=== PATIENT | male | born 1960 | race American Indian/Alaskan Native ===

== ENCOUNTER 2019-01-09 20:46 | Emergency (ER) | payer SELFPAY ==
--- NOTE | 2019-01-09 21:11 | Event Note ---
ED Screening Note Date of service: 01/09/19 Time: 21:08 ED Screening Note: This is a 59 y.o. M. that presents to the ER with LUE pain. Patient states he was walking home when he fell. Reports drinking a few beers and dont know who called EMS for him. He denies hitting his head. This initial assessment/diagnostic orders/clinical plan/treatment(s) is/are subject to change based on patients health status, clinical progression and re- assessment by fellow clinical providers in the ED. Further treatment and workup at subsequent clinical providers discretion. Patient/guardian urged not to elope from the ED as their condition may be serious if not clinically assessed and managed. Initial orders include:
[2019-01-09] MEDS ORDERED: HALOPERIDOL LACTATE 5 MG/1 ML INJ IM PRN (22:55)
[2019-01-09] MEDS ORDERED: LORazepam 2 MG/ML VIAL IM PRN (22:55)
--- NOTE | 2019-01-09 23:56 | Emergency Department Report ---
ED Alcohol HPI - General Chief Complaint: Extremity Injury, Upper Stated Complaint: ETOH Time Seen by Provider: 01/09/19 21:07 Source: patient, EMS ( EMS documentation not available at time of chart dictation ), RN notes reviewed Mode of arrival: Ambulatory Limitations: No Limitations, Other (alcohol intoxication) - History of Present Illness Initial Comments: This is a 59-year-old gentleman. This patient is not known to this provider previously. He does not know who his primary care doctor is. Reportedly has a history of arthritis, stroke, hypertension, left-sided hand pain. Patient brought to the hospital by EMS after reported fall. Apparently, the patient fell onto his left hand. He doesn't think he hit his head. He does not think he hit his neck. He only complains of left hand pain. He denies other injuries. He denies other complaints. He makes no dorsal homicidality or suicidality. Patient not accompanied by any friends, family, or witnesses at this time. MD Complaint: alcohol intoxication Last Drink: unknown Chronic Alcohol Use: No Previous Visits for Alcohol Intoxication?: No Recent Trauma: Yes Associated Symptoms: denies other symptoms - Related Data Previous Rx's Medication Instructions Recorded Last Taken Type Multivitamin with Folic Acid [Cvs 400 mcg PO QDAY #30 tablet 01/10/19 Unknown Rx One Daily Essential Tablet] chlordiazePOXIDE [Librium] 25 mg PO Q6H PRN #15 capsule 01/10/19 Unknown Rx Allergies Allergy/AdvReac Type Severity Reaction Status Date / Time No Known Allergies Allergy Unverified 01/02/19 22:32 ED Review of Systems ROS: Stated complaint: ETOH Other details as noted in HPI Comment: Unobtainable due to pts medical conditions Constitutional: denies: fever Eyes: denies: eye discharge ENT: denies: epistaxis Respiratory: denies: cough Cardiovascular: denies: chest pain Gastrointestinal: denies: abdominal pain Musculoskeletal: arthralgia, myalgia Neurological: denies: headache Psychiatric: denies: homicidal thoughts, suicidal thoughts ED Past Medical Hx - Past Medical History Previous Medical History?: Yes Hx Hypertension: Yes Hx CVA: Yes Hx Arthritis: Yes Additional medical history: Dysphagia - Surgical History Past Surgical History?: Yes Additional Surgical History: Has G-Tube - Social History Smoking Status: Current Every Day Smoker Substance Use Type: Alcohol - Medications Home Medications: Home Medications Medication Instructions Recorded Confirmed Last Taken Type Multivitamin with Folic Acid [Cvs 400 mcg PO QDAY #30 tablet 01/10/19 Unknown Rx One Daily Essential Tablet] chlordiazePOXIDE [Librium] 25 mg PO Q6H PRN #15 capsule 01/10/19 Unknown Rx ED Physical Exam - General General appearance: alert, appears intoxicated - Head Head exam: Present: atraumatic, normocephalic - Eye Eye exam: Present: normal appearance, EOMI. Absent: nystagmus - ENT ENT exam: Present: normal exam, normal orophraynx, mucous membranes moist, normal external ear exam - Neck Neck exam: Present: normal inspection, full ROM. Absent: tenderness, meningismus - Respiratory Respiratory exam: Present: normal lung sounds bilaterally. Absent: respiratory distress - Cardiovascular Cardiovascular Exam: Present: normal rhythm, tachycardia, normal heart sounds. Absent: systolic murmur, diastolic murmur, rubs, gallop - GI/Abdominal GI/Abdominal exam: Present: soft. Absent: distended, tenderness, guarding, rebound, rigid, pulsatile mass - Rectal Rectal exam: Present: deferred - Extremities Exam Extremities exam: Present: other (2+ pulses noted in the bilateral upper, lower extremities. There is no long bone tenderness. Musculoskeletal compartments are soft. The pelvis is stable.). Absent: normal inspection (left second digit PIP is swollen and chronically appearing discolored) - Back Exam Back exam: Present: normal inspection, full ROM. Absent: tenderness, CVA tenderness (R), CVA tenderness (L), paraspinal tenderness, vertebral tenderness - Neurological Exam Neurological exam: Present: alert, normal gait, other (there is no facial droop. The tongue is midline. Extraocular movements are intact bilaterally. Patient speaking in full complete sentences. Shoulder shrug is intact bilaterally. Hearing is grossly intact bilaterally. Visual acuity intact to finger counting and color perception at a close distance. 5/5 strength 4 extremities. Sensation intact to light touch in 4 extremities.). Absent: motor sensory deficit - Psychiatric Psychiatric exam: Absent: homicidal ideation, suicidal ideation - Skin Skin exam: Present: warm, dry, intact, normal color. Absent: rash ED Course Vital Signs 01/09/19 01/09/19 01/10/19 20:59 23:11 02:12 Temperature 98.0 F 98.2 F 98.2 F Pulse Rate 101 H 85 91 H Respiratory 18 16 18 Rate Blood Pressure 129/76 Blood Pressure 145/72 138/81 [Left] O2 Sat by Pulse 96 100 100 Oximetry - Reevaluation(s) Reevaluation #1: 01/10/19 00:33 Differential diagnosis, including not limited to: Alcohol intoxication, intracranial injury, cervical spine injury, left hand fracture, contusion, sprain, strain Assessment and plan: 59-year-old gentleman who is clinically intoxicated, walking with a walker, does not appear to be in any acute distress. Screening laboratory studies pending, thus far unremarkable. Noncontrast CT scan of the brain, cervical spine negative for acute disease. X-ray left hand appears to be negative for acute disease. We will observe patient in the emergency room pending clinical sobriety. Resting comfortable, on a stretcher at this time, and in no acute distress. Reevaluation #2: 01/10/19 01:17 Clinically sober, no acute distress, not endorsing any complaints. ED Medical Decision Making - Lab Data Result diagrams: 01/09/19 23:01 01/09/19 23:01 Vital Signs 01/09/19 01/09/19 20:59 23:11 Temperature 98.0 F 98.2 F Pulse Rate 101 H 85 Respiratory 18 16 Rate Blood Pressure 129/76 Blood Pressure 145/72 [Left] O2 Sat by Pulse 96 100 Oximetry Lab Results 01/09/19 01/09/19 01/09/19 Range/Units 23:01 23:01 23:01 WBC 6.9 (4.5-11.0) K/mm3 RBC 4.30 (3.65-5.03) M/mm3 Hgb 13.8 (11.8-15.2) gm/dl Hct 42.2 (35.5-45.6) % MCV 98 H (84-94) fl MCH 32 (28-32) pg MCHC 33 (32-34) % RDW 15.0 (13.2-15.2) % Plt Count 243 (140-440) K/mm3 Sodium 145 (137-145) mmol/L Potassium 3.5 L (3.6-5.0) mmol/L Chloride 103.7 (98-107) mmol/L Carbon Dioxide 29 (22-30) mmol/L Anion Gap 16 mmol/L BUN 13 (9-20) mg/dL Creatinine 0.7 L (0.8-1.5) mg/dL Estimated GFR > 60 ml/min BUN/Creatinine Ratio 19 % Glucose 89 (75-100) mg/dL Calcium 9.6 (8.4-10.2) mg/dL Magnesium 2.30 (1.7-2.3) mg/dL Total Creatine Kinase 164 (55-170) units/L Acetaminophen < 5.0 L (10.0-30.0) ug/mL - Radiology Data Radiology results: report reviewed, image reviewed interpreted by me: X-ray of the left hand is negative for acute disease. non Contrast CT scan of the brain, cervical spine negative for acute disease. Critical care attestation.: If time is entered above; I have spent that time in minutes in the direct care of this critically ill patient, excluding procedure time. ED Disposition Clinical Impression: Alcohol intoxication, Fall Disposition: DC-01 TO HOME OR SELFCARE Is pt being admited?: No Does the pt Need Aspirin: No Condition: Stable Additional Instructions: Minimize or discontinue alcohol consumption. Follow-up with the primary care doctor within the next month. Take the medications as needed/directed. Return to the emergency room right away with new, worsened, or different symptoms not present on the emergency room evaluation. Prescriptions: Multivitamin with Folic Acid [Cvs One Daily Essential Tablet] 400 mcg PO QDAY #30 tablet chlordiazePOXIDE [Librium] 25 mg PO Q6H PRN #15 capsule PRN Reason: Alcohol Withdrawal Referrals: PRIMARY CARE [Primary Care Provider] - 3-5 Days [facility] [Provider Group] - 3-5 Days [facility] [Provider Group] - 3-5 Days
[2019-01-10 00:07] LABS: Hematocrit 42.2 % (35.5-45.6); Hemoglobin 13.8 gm/dl (11.8-15.2); Mean Corpuscular HGB Conc 33 % (32-34); Mean Corpuscular Volume 98 fl (84-94); Platelet Count 243 K/mm3 (140-440)
--- NOTE | 2019-01-10 00:12 | Cat Scan Report ---
CT head/brain wo con INDICATION: Fall, head trauma. TECHNIQUE: Routine CT head without contrast. All CT scans at this location are performed using CT dose reduction for ALARA by means of automated exposure control. COMPARISON: None. FINDINGS: BRAIN / INTRACRANIAL CONTENTS: No acute hemorrhage, brain edema, mass effect, or hydrocephalus. Jagruti l romero-white differentiation. There are moderate areas of hypoattenuation in the white matter of the cerebral hemispheres. Given the location and appearance, these most likely reflect chronic microvascu lar angiopathic change. These are considered to be advanced (even for the patient's age) and probably indicate chronic hypertension, diabetes, and/or chronic kidney disease. CALVARIUM/SKULL BASE/CRANIOCERVICAL JUNCTION: No evidence of fracture. ORBITS: No significant abnormality of visualized orbits. SINUSES / MASTOIDS: No significant abnormality of visualized sinuses and mastoid air cells. ADDITIONAL FINDINGS: None. IMPRESSION: 1. No acute post-traumatic intracranial abnormality. 2. Moderate chronic microvascular angiopathic change in the cerebral white matter which is advanced f or the patient's age. Signer Name: Toy Allred MD Signed: 01/10/2019 12:08 AM Workstation Name: [id number]
--- NOTE | 2019-01-10 00:13 | Cat Scan Report ---
CT CERVICAL SPINE WITHOUT CONTRAST INDICATION: Neck pain, fall. TECHNIQUE: Axial CT images of the spine were obtained. Sagittal and coronal reformatted images were produced. Al l CT scans at this location are performed using CT dose reduction for ALARA by means of automated exp osure control. COMPARISON: None available. FINDINGS: ACUTE FRACTURE(S) OR SUBLUXATION: None. SPINAL DEGENERATIVE CHANGES: There findings of DISH with large anterior bridging osteophytes from C3 through C7. There is no significant spinal canal stenosis. PARASPINAL SOFT TISSUES: No soft tissue swelling or other acute abnormalities. ADDITIONAL FINDINGS: There is atherosclerotic calcification in the carotid bulbs. IMPRESSION: 1. No acute fracture or subluxation in the spine in neutral position. Signer Name: Toy Allred MD Signed: 01/10/2019 12:09 AM Workstation Name: [id number]
[2019-01-10 00:24] LABS: BUN/Creatinine Ratio 19; Blood Urea Nitrogen 13 mg/dL (9-20); Calcium 9.6 mg/dL (8.4-10.2); Hemolysis Index 20
--- NOTE | 2019-01-10 01:22 | XRay Report ---
XR hand 3+V LT INDICATION / CLINICAL INFORMATION: left hand pain. COMPARISON: None available. FINDINGS: BONES/JOINT(S): There is an avulsion fracture of the dorsal base of the index finger middle phalanx w ith mild volar subluxation of the middle phalanx. There is no other acute fracture. There is mild DJD throughout the interphalangeal joints. SOFT TISSUES: No significant abnormality. ADDITIONAL FINDINGS: None. Signer Name: Toy Allred MD Signed: 01/10/2019 1:17 AM Workstation Name: [id number]
[2019-01-10 02:48] VITALS: BP 138/81
== END 2019-01-10 02:12 | disposition home or self-care (01) ==
LOC: ED 20:46
DX: M79.602 Pain in left arm (principal); F10.929 Alcohol use, unspecified with intoxication, unspecified; R51 Headache; I10 Essential (primary) hypertension; M19.90 Unspecified osteoarthritis, unspecified site; F17.200 Nicotine dependence, unspecified, uncomplicated; Z86.73 Personal history of transient ischemic attack (TIA), and cerebral infarction without residual deficits; W19.XXXA Unspecified fall, initial encounter; Y93.89 Activity, other specified; Y92.89 Other specified places as the place of occurrence of the external cause; Y99.8 Other external cause status
CPT/HCPCS: 36415; 70450; 72125; 80048; 80320; 82550; 83735; 85027; G0480

== ENCOUNTER 2019-01-24 20:49 | Emergency (ER) | payer SELFPAY ==
--- NOTE | 2019-01-24 21:29 | Event Note ---
ED Screening Note Date of service: 01/24/19 Time: 21:26 ED Screening Note: 59 y/o male comes in for a cut on his left hand after having a fall. Patient denies head injury. No headache no chest pain no nausea or vomiting. This initial assessment/diagnostic orders/clinical plan/treatment(s) is/are subject to change based on patients health status, clinical progression and re- assessment by fellow clinical providers in the ED. Further treatment and workup at subsequent clinical providers discretion. Patient/guardian urged not to elope from the ED as their condition may be serious if not clinically assessed and managed. Initial orders include:
[2019-01-24] MEDS ORDERED: TETANUS,DIPH,PERTUSS(ACELL) VACCINE 0.5 ML SYRINGE IM ONE (21:37)
--- NOTE | 2019-01-24 21:40 | Emergency Department Report ---
HPI - General Chief Complaint: Alcohol Time Seen by Provider: 01/24/19 21:25 - HPI HPI: Room 29 The patient is a 5-year-old male presenting with a chief complaint left hand pain after fall. The patient states just prior to arrival he lost his balance a nd fell forward injuring his left hand. The patient states he has a history of end-stage renal disease and undergoes peritoneal dialysis but states he cannot remember the last time he dialyzed. Patient admits to alcohol consumption. ED Past Medical Hx - Past Medical History Hx Hypertension: Yes Hx CVA: Yes Hx Arthritis: Yes Additional medical history: Dysphagia - Surgical History Additional Surgical History: Feeding tube - Family History Family history: no significant - Social History Smoking Status: Current Every Day Smoker Substance Use Type: Alcohol - Medications Home Medications: Home Medications Medication Instructions Recorded Confirmed Last Taken Type Multivitamin with Folic Acid [Cvs 400 mcg PO QDAY #30 tablet 01/10/19 Unknown Rx One Daily Essential Tablet] chlordiazePOXIDE [Librium] 25 mg PO Q6H PRN #15 capsule 01/10/19 Unknown Rx ED Review of Systems ROS: Stated complaint: LACERATION TO LEFT HAND FROM FALL/ETOH Other details as noted in HPI Constitutional: no symptoms reported Eyes: denies: eye pain ENT: denies: throat pain Respiratory: no symptoms reported Cardiovascular: denies: chest pain Endocrine: no symptoms reported Gastrointestinal: denies: abdominal pain Genitourinary: denies: dysuria Musculoskeletal: arthralgia Skin: other (abrasion to left hand) Neurological: denies: headache Physical Exam - Physical Exam Vital Signs: Vital Signs 01/24/19 21:06 Temperature 98.3 F Pulse Rate 90 Respiratory 18 Rate Blood Pressure 150/78 O2 Sat by Pulse 99 Oximetry Physical Exam: GENERAL: The patient is well-developed well-nourished male standing with her walker not appearing to be in acute distress. [] HEENT: Normocephalic. Atraumatic. Extraocular motions are intact. Patient has moist mucous membranes. NECK: Supple. Trachea midline CHEST/LUNGS: Clear to auscultation. There is no respiratory distress noted. HEART/CARDIOVASCULAR: Regular. There is no tachycardia. There is no gallop rub or murmur. ABDOMEN: Abdomen is soft, nontender. Patient has normal bowel sounds. There is no abdominal distention. SKIN: There is an abrasion to the ulnar aspect of the left palm and left small finger. There is no diaphoresis. NEURO: The patient is awake, alert, and oriented. The patient is cooperative. The patient has normal speech MUSCULOSKELETAL: There is tenderness to palpation of the ulnar aspect of the left hand ED Course Vital Signs 01/24/19 21:06 Temperature 98.3 F Pulse Rate 90 Respiratory 18 Rate Blood Pressure 150/78 O2 Sat by Pulse 99 Oximetry ED Medical Decision Making - Lab Data Result diagrams: 01/24/19 22:52 01/24/19 21:42 Laboratory Tests 01/24/19 01/24/19 01/24/19 21:42 21:42 22:52 WBC TNR 8.4 RBC TNR 4.31 Hgb TNR 14.2 Hct TNR 42.0 MCV TNR 97 H MCH TNR 33 H MCHC TNR 34 RDW TNR 14.6 Plt Count TNR 248 Lymph % (Auto) TNR 16.0 [place]ferro % (Auto) TNR 8.0 H Eos % (Auto) TNR 3.5 Baso % (Auto) TNR 0.9 Lymph # TNR 1.3 [place]ferro # TNR 0.7 Eos # TNR 0.3 Baso # TNR 0.1 Seg Neutrophils % TNR 71.6 H Seg Neutrophils # TNR 6.0 Sodium 140 Potassium 4.3 Chloride 102.2 Carbon Dioxide 21 L Anion Gap 21 BUN 11 Creatinine 0.6 L Estimated GFR > 60 BUN/Creatinine Ratio 18 Glucose 87 Calcium 9.7 Plasma/Serum Alcohol 01/24/19 23:26 WBC RBC Hgb Hct MCV MCH MCHC RDW Plt Count Lymph % (Auto) [place]ferro % (Auto) Eos % (Auto) Baso % (Auto) Lymph # [place]ferro # Eos # Baso # Seg Neutrophils % Seg Neutrophils # Sodium Potassium Chloride Carbon Dioxide Anion Gap BUN Creatinine Estimated GFR BUN/Creatinine Ratio Glucose Calcium Plasma/Serum Alcohol 0.07 - Radiology Data Radiology results: report reviewed (left hand x-ray), image reviewed (left hand x-ray) interpreted by me: Left hand x-ray-no acute fracture [facility] [address] [place] [address] XRay Report Signed Patient: ONELIA ROSENBERG MR#: [id number] 110 : 1960 Acct:[id number] Age/Sex: 59 / M ADM Date: 01/24/19 Loc: ED Attending Dr: Ordering Physician: CASS HEATON MD Date of Service: 01/24/19 Procedure(s): XR hand 2V LT Accession Number(s): [id number] cc: CASS HEATON MD Fluoro Time In Minutes: LEFT HAND, 3 VIEWS 2018 INDICATION / CLINICAL INFORMATION: pain after fall. COMPARISON: 01/09/2019 FINDINGS: Soft tissue swelling surrounding the PIP joint index finger is similar in appearance to the comparison study. There are degenerative changes of the PIP joints of the index and small fingers. Mild degenerative changes in the proximal first metacarpal. No evidence of fracture or dislocation. Signer Name: Tomás Bertrand MD Signed: 01/24/2019 11:16 PM Workstation Name: [id number] Transcribed By: CUATE Dictated By: Tomás Bertrand MD Electronically Authenticated By: Tomás Bertrand MD Signed Date/Time: 01/24/192315 DD/ 13 TD/TT: - Differential Diagnosis hand fracture, hand abrasion, alcohol intoxication, renal failure Critical care attestation.: If time is entered above; I have spent that time in minutes in the direct care of this critically ill patient, excluding procedure time. ED Disposition Clinical Impression: Contusion of left hand, Abrasion of left hand, Homelessness Disposition: DC-01 TO HOME OR SELFCARE Is pt being admited?: No Does the pt Need Aspirin: No Condition: Stable Instructions: Acute Wound Care (ED) Time of Disposition: 00:27 (awaiting social work spoke)
[2019-01-24 22:29] LABS: BUN/Creatinine Ratio 18; Blood Urea Nitrogen 11 mg/dL (9-20); Calcium 9.7 mg/dL (8.4-10.2); Hematocrit TNR % (35.5-45.6); Hemoglobin TNR gm/dl (11.8-15.2); Hemolysis Index 52; Mean Corpuscular HGB Conc TNR % (32-34); Mean Corpuscular Volume TNR fl (84-94); Mean Platelet Volume TNR fl (6-12); Platelet Count TNR K/mm3 (140-440); Red Blood Count TNR M/mm3 (3.65-5.03); Red Cell Distribution Width TNR % (13.2-15.2)
[2019-01-24 22:31] LABS: Basophils % (Auto) TNR % (0.0-1.8); Eosinophils % (Auto) TNR % (0.0-4.3); Lymphocytes # (Auto) TNR K/mm3 (1.2-5.4); Lymphocytes % (Auto) TNR % (13.4-35.0); Monocytes # (Auto) TNR K/mm3 (0.0-0.8); Monocytes % (Auto) TNR % (0.0-7.3)
[2019-01-24 22:32] LABS: Basophils # (Auto) TNR K/mm3 (0.0-0.1); Eosinophils # (Auto) TNR K/mm3 (0.0-0.4)
[2019-01-24] MEDS ORDERED: NEOMY 3.5 MG/BACIT 400 UNITS/POLY B 5000 UNITS/GM OINT PACKET TP ONE ×2 (22:34→22:37)
--- NOTE | 2019-01-24 23:20 | XRay Report ---
LEFT HAND, 3 VIEWS 2019 INDICATION / CLINICAL INFORMATION: pain after fall. COMPARISON: 01/09/2019 FINDINGS: Soft tissue swelling surrounding the PIP joint index finger is similar in appearance to the compariso n study. There are degenerative changes of the PIP joints of the index and small fingers. Mild degenerative changes in the proximal first metacarpal. No evidence of fracture or dislocation. Signer Name: Tomás Bertrand MD Signed: 01/24/2019 11:16 PM Workstation Name: [id number]
[2019-01-24 23:39] LABS: Basophils # (Auto) 0.1 K/mm3 (0.0-0.1); Basophils % (Auto) 0.9 % (0.0-1.8); Eosinophils # (Auto) 0.3 K/mm3 (0.0-0.4); Eosinophils % (Auto) 3.5 % (0.0-4.3); Hemoglobin 14.2 gm/dl (11.8-15.2); Lymphocytes # (Auto) 1.3 K/mm3 (1.2-5.4); Mean Corpuscular HGB Conc 34 % (32-34); Mean Corpuscular Volume 97 fl (84-94); Monocytes # (Auto) 0.7 K/mm3 (0.0-0.8); Platelet Count 248 K/mm3 (140-440); Red Blood Count 4.31 M/mm3 (3.65-5.03); Red Cell Distribution Width 14.6 % (13.2-15.2)
[2019-01-25 04:05] VITALS: BP 152/78
== END 2019-01-25 10:30 | disposition home or self-care (01) ==
LOC: ED 20:49
DX: S60.222A Contusion of left hand, initial encounter (principal); S60.512A Abrasion of left hand, initial encounter; Z59.0 Homelessness; W18.30XA Fall on same level, unspecified, initial encounter; Y93.89 Activity, other specified; Y92.89 Other specified places as the place of occurrence of the external cause; Y99.8 Other external cause status
CPT/HCPCS: 36415; 80048; 80320; 85025; 90471; 90715; A6250; G0480

== ENCOUNTER 2019-01-25 16:10 | Emergency (ER) | payer SELFPAY ==
--- NOTE | 2019-01-25 20:24 | Emergency Department Report ---
HPI - General Chief Complaint: Fall Time Seen by Provider: 01/25/19 19:48 - HPI HPI: Room 33 The patient is a 5-year-old male presenting with chief complaint of left index finger pain after fall. The patient was seen by myself yesterday after a fall injuring the left hand. X-rays yesterday were negative. The patient states he was seen by social work and given a referral to a intermediate but decided not to go. The patient returns to the emergency department stating that he had fallen again this time injuring the left index finger. ED Past Medical Hx - Past Medical History Previous Medical History?: Yes Hx Hypertension: Yes Hx CVA: Yes Hx Arthritis: Yes Additional medical history: Dysphagia - Surgical History Past Surgical History?: Yes Additional Surgical History: Feeding tube - Family History Family history: no significant - Social History Smoking Status: Unknown if ever smoked Substance Use Type: Prescribed - Medications Home Medications: Home Medications Medication Instructions Recorded Confirmed Last Taken Type Multivitamin with Folic Acid [[facility] 400 mcg PO QDAY #30 tablet 01/10/19 Unknown Rx One Daily Essential Tablet] chlordiazePOXIDE [Librium] 25 mg PO Q6H PRN #15 capsule 01/10/19 Unknown Rx HYDROcodone/APAP 5-325 [[place] 1 - 2 each PO Q6HR PRN #14 tablet 01/25/19 Unknown Rx 5/325] Ibuprofen [Motrin 800 MG tab] 800 mg PO Q8HR PRN #20 tablet 01/25/19 Unknown Rx ED Review of Systems ROS: Stated complaint: FINGER PAIN Other details as noted in HPI Constitutional: no symptoms reported Eyes: denies: eye pain ENT: denies: throat pain Respiratory: no symptoms reported Cardiovascular: denies: chest pain Endocrine: no symptoms reported Gastrointestinal: denies: abdominal pain Genitourinary: denies: dysuria Musculoskeletal: denies: back pain Neurological: denies: headache Physical Exam - Physical Exam Vital Signs: Vital Signs 01/25/19 18:15 Temperature 98.3 F Pulse Rate 107 H Respiratory 18 Rate Blood Pressure 155/78 O2 Sat by Pulse 96 Oximetry Physical Exam: GENERAL: The patient is well-developed well-nourished male standing in room not appearing to be in acute distress. [] HEENT: Normocephalic. Atraumatic. Extraocular motions are intact. Patient has moist mucous membranes. NECK: Supple. Trachea midline CHEST/LUNGS: Clear to auscultation. There is no respiratory distress noted. HEART/CARDIOVASCULAR: Regular. There is no tachycardia. There is no gallop rub or murmur. ABDOMEN: Abdomen is soft, nontender. Patient has normal bowel sounds. There is no abdominal distention. SKIN: There is no rash. There is no edema. There is no diaphoresis. NEURO: The patient is awake, alert, and oriented. The patient is cooperative. The patient has normal speech MUSCULOSKELETAL: There is tenderness and swelling to the left index finger. ED Course Vital Signs 01/25/19 18:15 Temperature 98.3 F Pulse Rate 107 H Respiratory 18 Rate Blood Pressure 155/78 O2 Sat by Pulse 96 Oximetry ED Medical Decision Making - Radiology Data Radiology results: report reviewed (CT head, left index finger x-ray), image reviewed (CT head, left index finger x-ray) interpreted by me: Left index finger r-uzj-rbpoapik fracture the proximal portion of the middle phalanx of the index finger at the PIP joint [address] [address] XRay Report Signed Patient: ONELIA ROSENBERG MR#: [id number] 110 : 1960 Acct:[id number] Age/Sex: 59 / M ADM Date: 01/25/19 Loc: ED Attending Dr: Ordering Physician: CASS HEATON MD Date of Service: 01/25/19 Procedure(s): XR finger(s) 2+V LT Accession Number(s): [id number] cc: CASS HEATON MD Fluoro Time In Minutes: LEFT HAND 3 VIEWS INDICATION: index finger pain after another fall. COMPARISON: One day prior. FINDINGS: There is no significant change in the dorsal avulsion fracture at the base of the middle phalanx of the left index finger. No new fractures are identified. Diffuse soft tissue swelling is again noted about the PIP joint of the left index finger. Osteoarthrosis changes are again noted. IMPRESSION: 1. No significant change. Signer Name: Elkin Ferro MD Signed: 01/25/2019 9:51 PM Workstation Name: [id number] Transcribed By: Dictated By: Elkin Ferro MD Electronically Authenticated By: Elkin Ferro MD Signed Date/Time: 01/25/192150 DD/ 48 TD/TT: [facility] [address] [place] [address] Cat Scan Report Signed Patient: ONELIA ROSENBERG MR#: [id number] 110 : 1960 Acct:[id number] Age/Sex: 59 / M ADM Date: 01/25/19 Loc: ED Attending Dr: Ordering Physician: CASS HEATON MD Date of Service: 01/25/19 Procedure(s): CT head/brain wo con Accession Number(s): [id number] cc: CASS HEATON MD CT HEAD WITHOUT CONTRAST INDICATION: frequent falls. TECHNIQUE: All CT scans at this location are performed using CT dose reduction for ALARA by means of automated exposure control. COMPARISON: CT 01/09/2019. FINDINGS: HEMORRHAGE: None. EXTRA-AXIAL SPACES: Normal in size and morphology for the patient's age. VENTRICULAR SYSTEM: Normal in size and morphology for the patient's age. BRAIN PARENCHYMA: No acute findings. Presumed microangiopathic changes within the periventricular white matter bilaterally is unchanged. Hypodensity and encephalomalacia in the left frontal lobe superior medially which may be due to chronic ischemic change is stable. MIDLINE SHIFT OR HERNIATION: None. ORBITS: Normal as visualized. SOFT TISSUES OF HEAD: Normal. CALVARIUM: Normal. VISUALIZED PARANASAL SINUSES AND MASTOID AIR CELLS: No air-fluid levels. Left maxillary mucosal thickening is noted. ADDITIONAL FINDINGS: None. IMPRESSION: 1. No acute intracranial abnormality. Signer Name: Elkin Ferro MD Signed: 01/25/2019 9:59 PM Workstation Name: [id number] Transcribed By: Dictated By: Elkin Ferro MD Electronically Authenticated By: Elkin Ferro MD Signed Date/Time: 01/25/192158 DD/ 54 TD/TT: - Differential Diagnosis finger fracture, finger contusion, closed head injury Critical care attestation.: If time is entered above; I have spent that time in minutes in the direct care of this critically ill patient, excluding procedure time. ED Disposition Clinical Impression: Fracture of phalanx of left index finger Disposition: - TO HOME OR SELFCARE Is pt being admited?: No Does the pt Need Aspirin: No Condition: Stable Instructions: Finger Fracture (ED) Prescriptions: Ibuprofen [Motrin 800 MG tab] 800 mg PO Q8HR PRN #20 tablet PRN Reason: Pain, Moderate (4-6) HYDROcodone/APAP 5-325 [[place] 5/325] 1 - 2 each PO Q6HR PRN #14 tablet PRN Reason: Pain Referrals: FRANCK MIDDLETON MD [Staff Physician] - 3-5 Days (Dr. Middleton is an orthopedic surgeon. Please follow up with him for further evaluation) Time of Disposition: 22:10
--- NOTE | 2019-01-25 21:56 | XRay Report ---
LEFT HAND 3 VIEWS INDICATION: index finger pain after another fall. COMPARISON: One day prior. FINDINGS: There is no significant change in the dorsal avulsion fracture at the base of the middle phalanx of t he left index finger. No new fractures are identified. Diffuse soft tissue swelling is again noted ab out the PIP joint of the left index finger. Osteoarthrosis changes are again noted. IMPRESSION: 1. No significant change. Signer Name: Elkin Ferro MD Signed: 01/25/2019 9:51 PM Workstation Name: [id number]
--- NOTE | 2019-01-25 22:03 | Cat Scan Report ---
CT HEAD WITHOUT CONTRAST INDICATION: frequent falls. TECHNIQUE: All CT scans at this location are performed using CT dose reduction for ALARA by means of automated e xposure control. COMPARISON: CT 01/09/2019. FINDINGS: HEMORRHAGE: None. EXTRA-AXIAL SPACES: Normal in size and morphology for the patient's age. VENTRICULAR SYSTEM: Normal in size and morphology for the patient's age. BRAIN PARENCHYMA: No acute findings. Presumed microangiopathic changes within the periventricular whi te matter bilaterally is unchanged. Hypodensity and encephalomalacia in the left frontal lobe superio r medially which may be due to chronic ischemic change is stable. MIDLINE SHIFT OR HERNIATION: None. ORBITS: Normal as visualized. SOFT TISSUES OF HEAD: Normal. CALVARIUM: Normal. VISUALIZED PARANASAL SINUSES AND MASTOID AIR CELLS: No air-fluid levels. Left maxillary mucosal thick ening is noted. ADDITIONAL FINDINGS: None. IMPRESSION: 1. No acute intracranial abnormality. Signer Name: Elkin Ferro MD Signed: 01/25/2019 9:59 PM Workstation Name: [id number]
[2019-01-25 22:44] VITALS: BP 128/82
== END 2019-01-25 22:44 | disposition home or self-care (01) ==
LOC: ED 16:10
DX: S62.621A Displaced fracture of middle phalanx of left index finger, initial encounter for closed fracture (principal); I10 Essential (primary) hypertension; M19.90 Unspecified osteoarthritis, unspecified site; R13.10 Dysphagia, unspecified; Z79.899 Other long term (current) drug therapy; Z86.73 Personal history of transient ischemic attack (TIA), and cerebral infarction without residual deficits; W18.39XA Other fall on same level, initial encounter; Y93.01 Activity, walking, marching and hiking; Y92.89 Other specified places as the place of occurrence of the external cause; Y99.8 Other external cause status
CPT/HCPCS: 70450

== ENCOUNTER 2019-02-10 19:07 | Emergency (ER) | payer SELFPAY ==
--- NOTE | 2019-02-10 20:54 | Emergency Department Report ---
HPI - General Chief Complaint: Pain General Time Seen by Provider: 02/10/19 20:29 - HPI HPI: Room 17 The patient is a 59-year-old male presenting with a chief complaint of left upper extremity weakness. She was reportedly brought in by EMS of "left leg and arm pain." The patient was found by EMS consuming beer. When asked what made him come to the emergency department the patient tells me he's had left upper extremity weakness which began at approximately 20:00. However the patient has been in the emergency department since approximately 19:10 Location: [See above] Duration: [See above] Quality: [See above] Severity: [See above] Timing: [See above] Context: [See above] Modifying factors: [See above] Associated signs and symptoms: [see above] ED Past Medical Hx - Past Medical History Previous Medical History?: Yes Hx Hypertension: Yes Hx CVA: Yes Hx Arthritis: Yes Additional medical history: Dysphagia - Surgical History Past Surgical History?: Yes Additional Surgical History: Feeding tube - Family History Family history: no significant - Social History Smoking Status: Current Every Day Smoker Substance Use Type: Alcohol - Medications Home Medications: Home Medications Medication Instructions Recorded Confirmed Last Taken Type Multivitamin with Folic Acid [[facility] 400 mcg PO QDAY #30 tablet 01/10/19 Unknown Rx One Daily Essential Tablet] chlordiazePOXIDE [Librium] 25 mg PO Q6H PRN #15 capsule 01/10/19 Unknown Rx HYDROcodone/APAP 5-325 [[place] 1 - 2 each PO Q6HR PRN #14 tablet 01/25/19 Unknown Rx 5/325] Ibuprofen [Motrin 800 MG tab] 800 mg PO Q8HR PRN #20 tablet 01/25/19 Unknown Rx ED Review of Systems ROS: Stated complaint: LT ARM PAIN Other details as noted in HPI Neurological: weakness Physical Exam - Physical Exam Vital Signs: Vital Signs 02/10/19 19:33 Temperature 98.6 F Pulse Rate 108 H Respiratory 16 Rate Blood Pressure 149/88 Blood Pressure 149/88 [Left] O2 Sat by Pulse 99 Oximetry Physical Exam: GENERAL: The patient is well-developed well-nourished male lying on stretcher with poor hygiene. [] HEENT: Normocephalic. Atraumatic. Extraocular motions are intact. Patient has moist mucous membranes. NECK: Supple. Trachea midline CHEST/LUNGS: Clear to auscultation. There is no respiratory distress noted. HEART/CARDIOVASCULAR: Regular. There is no tachycardia. There is no gallop rub or murmur. ABDOMEN: Abdomen is soft, nontender. Patient has normal bowel sounds. There is no abdominal distention. SKIN: There is no rash. There is no edema. There is no diaphoresis. NEURO: The patient is awake, alert, and oriented. The patient is cooperative. Cranial nerves II through XII grossly intact. Moves all extremities. Laterally. The patient has normal speech MUSCULOSKELETAL:hThere is no evidence of acute injury. ED Course Vital Signs 02/10/19 19:33 Temperature 98.6 F Pulse Rate 108 H Respiratory 16 Rate Blood Pressure 149/88 Blood Pressure 149/88 [Left] O2 Sat by Pulse 99 Oximetry - Consultations Consultation #1: 02/10/19 21:03 Is discussed with neurologist. No focal findings on exam. Consider TIA and admission for workup ED Medical Decision Making - Lab Data Laboratory Tests 02/10/19 02/10/19 02/10/19 20:53 20:53 20:53 WBC 8.7 RBC 4.28 Hgb 13.4 Hct 40.6 MCV 95 H MCH 31 MCHC 33 RDW 14.1 Plt Count 239 PT 14.0 INR 1.09 APTT 34.1 Sodium 140 Potassium 3.4 L Chloride 102.6 Carbon Dioxide 21 L Anion Gap 20 BUN 12 Creatinine 0.7 L Estimated GFR > 60 BUN/Creatinine Ratio 17 Glucose 102 H Calcium 9.5 Total Bilirubin 0.40 AST 32 ALT 20 Alkaline Phosphatase 44 Total Creatine Kinase 180 H CK-MB (CK-2) 3.4 CK-MB (CK-2) Rel Index 1.8 Troponin T Total Protein 7.7 Albumin 3.9 Albumin/Globulin Ratio 1.0 Plasma/Serum Alcohol 02/10/19 02/10/19 20:53 20:53 WBC RBC Hgb Hct MCV MCH MCHC RDW Plt Count PT INR APTT Sodium Potassium Chloride Carbon Dioxide Anion Gap BUN Creatinine Estimated GFR BUN/Creatinine Ratio Glucose Calcium Total Bilirubin AST ALT Alkaline Phosphatase Total Creatine Kinase CK-MB (CK-2) CK-MB (CK-2) Rel Index Troponin T < 0.010 Total Protein Albumin Albumin/Globulin Ratio Plasma/Serum Alcohol 0.02 - EKG Data -: EKG Interpreted by [place] EKG shows normal: sinus rhythm Rate: normal - EKG Data When compared to previous EKG there are: previous EKG unavailable Interpretation: nonspecific ST-T wave norma - Radiology Data Radiology results: report reviewed (CT head), image reviewed (CT head) [facility] [address] [place] [address] Cat Scan Report Signed Patient: TOÑO ROSENBERG MR#: [id number] 10 : 1960 Acct:[id number] Age/Sex: 59 / M ADM Date: 02/10/19 Loc: ED Attending Dr: Ordering Physician: CASS HEATON MD Date of Service: 02/10/19 Procedure(s): CT head/brain wo con Accession Number(s): [id number] cc: CASS HEATON MD CT head/brain wo con INDICATION / CLINICAL INFORMATION: 59 years Male; MAIN: left upper extremity weakness: CODE STROKE CALL ER @ [phone]. TECHNIQUE: Routine CT head without contrast. All CT scans at this location are performed using CT dose reduction for ALARA by means of automated exposure control. COMPARISON: The study is compared to the previous CT of 01/25/2019. FINDINGS: BRAIN / INTRACRANIAL CONTENTS: There are persistent old infarcts involving the basal ganglia and right blount radiata with encephalomalacia. The findings correlate with the previous CT. There is cerebral white matter disease extending into the frontal regions most consistent with microvascular angiopathy. The findings remain compatible with old infarct involving the more anterior left frontal lobe which is unchanged. The ventricular system remains unchanged in size and configuration. There is mild cerebral atrophy at. There is no clear CT evidence of acute intracranial hemorrhage or significant mass effect. ORBITS: No significant abnormality of visualized orbits. SINUSES / MASTOIDS: No significant abnormality the visualized paranasal sinuses or mastoid air cells. CRANIOCERVICAL JUNCTION: No significant abnormality. ADDITIONAL FINDINGS: None. IMPRESSION: 1. There are multiple old infarcts as detailed above which correlate with the previous CT of 01/25/2019. There is no CT ends of acute intracranial hemorrhage. The study was specified as code stroke and called emergently to Dr. Heaton in the ER at 8:03 PM Central standard time. Signer Name: Austin Sultana MD Signed: 02/10/2019 9:04 PM Workstation Name: [id number] Transcribed By: MR Dictated By: Austin Sultana MD Electronically Authenticated By: Austin Sultana MD Signed Date/Time: 02/10/192103 DD/ 56 TD/TT: - Differential Diagnosis alcohol intoxication, TIA, CVA, Critical care attestation.: If time is entered above; I have spent that time in minutes in the direct care of this critically ill patient, excluding procedure time. ED Disposition Clinical Impression: Left arm weakness Disposition: DC-09 OP ADMIT IP TO THIS HOSP Is pt being admited?: Yes Does the pt Need Aspirin: Yes Condition: Fair Time of Disposition: 22:30 (hospitalist paged (Dr Fraga))
[2019-02-10] MEDS ORDERED: ASPIRIN 325 MG TAB PO ONE (21:03)
[2019-02-10 21:06] LABS: Hematocrit 40.6 % (35.5-45.6); Hemoglobin 13.4 gm/dl (11.8-15.2); Mean Corpuscular HGB Conc 33 % (32-34); Mean Corpuscular Volume 95 fl (84-94); Platelet Count 239 K/mm3 (140-440); Red Blood Count 4.28 M/mm3 (3.65-5.03); Red Cell Distribution Width 14.1 % (13.2-15.2)
--- NOTE | 2019-02-10 21:09 | Cat Scan Report ---
CT head/brain wo con INDICATION / CLINICAL INFORMATION: 59 years Male; MAIN: left upper extremity weakness: CODE STROKE CALL ER @ [phone]. TECHNIQUE: Routine CT head without contrast. All CT scans at this location are performed using CT dos e reduction for ALARA by means of automated exposure control. COMPARISON: The study is compared to the previous CT of 01/25/2019. FINDINGS: BRAIN / INTRACRANIAL CONTENTS: There are persistent old infarcts involving the basal ganglia and righ t blount radiata with encephalomalacia. The findings correlate with the previous CT. There is cerebra l white matter disease extending into the frontal regions most consistent with microvascular angiopat hy. The findings remain compatible with old infarct involving the more anterior left frontal lobe whi ch is unchanged. The ventricular system remains unchanged in size and configuration. There is mild cerebral atrophy at . There is no clear CT evidence of acute intracranial hemorrhage or significant mass effect. ORBITS: No significant abnormality of visualized orbits. SINUSES / MASTOIDS: No significant abnormality the visualized paranasal sinuses or mastoid air cells. CRANIOCERVICAL JUNCTION: No significant abnormality. ADDITIONAL FINDINGS: None. IMPRESSION: 1. There are multiple old infarcts as detailed above which correlate with the previous CT of 01/26/20 19. There is no CT ends of acute intracranial hemorrhage. The study was specified as code stroke and called emergently to Dr. Campbell in the ER at 8:03 PM Central standard time. Signer Name: Austin Sultana MD Signed: 02/10/2019 9:04 PM Workstation Name: [id number]
[2019-02-10 21:25] LABS: Creatine Kinase MB 3.4 ng/mL (0.0-4.0)
[2019-02-10 21:28] LABS: Alanine Aminotransferase 20 units/L (7-56); Albumin 3.9 g/dL (3.9-5); BUN/Creatinine Ratio 17; Blood Urea Nitrogen 12 mg/dL (9-20); Calcium 9.5 mg/dL (8.4-10.2); Hemolysis Index 4
[2019-02-10 21:32] LABS: INR 1.09 (0.87-1.13)
[2019-02-10 21:33] LABS: Partial Thromboplastin Time 34.1 Sec. (24.2-36.6)
[2019-02-10 22:13] LABS: Basophils % (Manual) 0 % (0.0-1.8); Total Cells Counted 100
[2019-02-10 22:14] LABS: Large Platelets 1+; Platelet Estimate Consistent w Auto; RBC Morphology Normal
--- NOTE | 2019-02-10 23:05 | Emergency Department Report ---
HPI - General Chief Complaint: Pain General Time Seen by Provider: 02/10/19 20:29 - HPI HPI: [employer] [facility] Date of Service: 02/10/2019 20:44:08 History of Present Illness: Patient was brought by EMS for symptoms of Left sided pain Patient with pmhx of R sided weakness since July was drinking alcohol this evening and complained of left sided pain. He has no complaint of headache, blurred vision, or other complaints aside for left sided pain. Patient doesnt provide reliable or consistent hx as he told ED MD he was having weakness on his left side but only complained of pain and currently he is antigravity in all extremities. CT head was reviewed. Examination: 1A: Level of Consciousness - Alert; keenly responsive + 0 1B: Ask Month and Age - 1 Question Right + 1 1C: Blink Eyes & Squeeze Hands - Performs Both Tasks + 0 2: Test Horizontal Extraocular Movements - Normal + 0 3: Test Visual Zhou - No Visual Loss + 0 4: Test Facial Palsy (Use Grimace if Obtunded) - Normal symmetry + 0 5A: Test Left Arm Motor Drift - No Drift for 10 Seconds + 0 5B: Test Right Arm Motor Drift - No Drift for 10 Seconds + 0 6A: Test Left Leg Motor Drift - No Drift for 5 Seconds + 0 6B: Test Right Leg Motor Drift - No Drift for 5 Seconds + 0 7: Test Limb Ataxia (FNF/Heel-Smith) - No Ataxia + 0 8: Test Sensation - Normal; No sensory loss + 0 9: Test Language/Aphasia - Normal; No aphasia + 0 10: Test Dysarthria - Normal + 0 11: Test Extinction/Inattention - No abnormality + 0 NIHSS Score: 1 ED Past Medical Hx - Past Medical History Previous Medical History?: Yes Hx Hypertension: Yes Hx CVA: Yes Hx Arthritis: Yes Additional medical history: Dysphagia - Surgical History Past Surgical History?: Yes Additional Surgical History: Feeding tube - Social History Smoking Status: Current Every Day Smoker Substance Use Type: Alcohol - Medications Home Medications: Home Medications Medication Instructions Recorded Confirmed Last Taken Type Multivitamin with Folic Acid [[facility] 400 mcg PO QDAY #30 tablet 01/10/19 Unknown Rx One Daily Essential Tablet] chlordiazePOXIDE [Librium] 25 mg PO Q6H PRN #15 capsule 01/10/19 Unknown Rx HYDROcodone/APAP 5-325 [[place] 1 - 2 each PO Q6HR PRN #14 tablet 01/25/19 Unknown Rx 5/325] Ibuprofen [Motrin 800 MG tab] 800 mg PO Q8HR PRN #20 tablet 01/25/19 Unknown Rx ED Review of Systems ROS: Stated complaint: LT ARM PAIN Other details as noted in HPI Neurological: weakness Physical Exam - Physical Exam Vital Signs: Vital Signs 02/10/19 02/10/19 19:33 22:00 Temperature 98.6 F Pulse Rate 108 H 98 H Respiratory 16 15 Rate Blood Pressure 149/88 152/86 Blood Pressure 149/88 [Left] O2 Sat by Pulse 99 97 Oximetry ED Course Vital Signs 02/10/19 02/10/19 19:33 22:00 Temperature 98.6 F Pulse Rate 108 H 98 H Respiratory 16 15 Rate Blood Pressure 149/88 152/86 Blood Pressure 149/88 [Left] O2 Sat by Pulse 99 97 Oximetry ED Medical Decision Making - Lab Data Result diagrams: 02/10/19 20:53 02/10/19 20:53 - Medical Decision Making Impression: RO Acute Ischemic Stroke Comments: Not iv tpa candidate as sxs resolving and unclear onset and hx. Not ONI candidate as exam is not correlating with LVO clinically. Metrics: Last Known Well: Unknown [employer] Notification Time: 02/10/2019 20:42:46 Arrival Time: 02/10/2019 19:33:00 Stamp Time: 02/10/2019 20:44:08 Time First Login Attempt: 02/10/2019 20:44:00 Video Start Time: 02/10/2019 20:47:00 Symptoms: Left sided pain NIHSS Start Assessment Time: 02/10/2019 20:50:00 Patient is not a candidate for tPA. Patient was not deemed candidate for tPA thrombolytics because of Last Well Known Above 4.5 Hours. Video End Time: 02/10/2019 20:56:00 CT head was reviewed. Advanced imaging was not obtained as the presentation was not suggestive of Large Vessel Occlusive Disease. ER physician notified of the decision on thrombolytics management. Our recommendations are outlined below. Recommendations: Antiplatelet Therapy Recommended Recommended Scan: MRI Head Carotid Dopplers Echocardiogram - Transthoracic Echocardiogram Therapies: Physical Therapy, Occupational Therapy, Speech Therapy Assessment When Applicable Dysphaghia Screen: Swallow Evaluation, Bedside DVT prophylaxis: Choice of Primary Team can consider neurology evaluation as inpt if needed. Disposition: Sign Out Sign Out: Discussed with Emergency Department Provider Patient was informed the Neurology Consult would happen via TeleHealth consult by way of interactive audio and video telecommunications and consented to receiving care in this manner. Due to the immediate potential for life-threatening deterioration due to underlying acute neurologic illness, I spent 35 minutes providing critical care. This time includes time for face to face visit via telemedicine, review of medical records, imaging studies and discussion of findings with providers, the patient and/or family. Dr Cem Moser [facility] Critical care attestation.: If time is entered above; I have spent that time in minutes in the direct care of this critically ill patient, excluding procedure time. ED Disposition Clinical Impression: TIA (transient ischemic attack) Disposition: 09 OP ADMIT IP TO THIS HOSP Is pt being admited?: Yes Does the pt Need Aspirin: Yes Condition: Fair
--- NOTE | 2019-02-10 23:22 | Event Note ---
Date: 02/11/19 59 YO Male presents to ED for evaluation. Pt seen and evaluate and denies any complaints. Pt states that he was drinking beer, and minding his business. Pt medically optimized and back to usual state of health. Pt discharged home and instructed to f/u pcp 3-5 days, and neurology 3-5 days. Pt counseled regarding ETOH cessation. GENERAL: The patient is well-developed well-nourished male lying on stretcher with poor hygiene. Pt requests a meal [] HEENT: Normocephalic. Atraumatic. Extraocular motions are intact. Patient has moist mucous membranes. NECK: Supple. Trachea midline CHEST/LUNGS: Clear to auscultation. There is no respiratory distress noted. HEART/CARDIOVASCULAR: Regular. There is no tachycardia. There is no gallop rub or murmur. ABDOMEN: Abdomen is soft, nontender. Patient has normal bowel sounds. There is no abdominal distention. SKIN: There is no rash. There is no edema. There is no diaphoresis. NEURO: The patient is awake, alert, and oriented. The patient is cooperative. Cranial nerves II through XII grossly intact. Moves all extremities. Laterally. The patient has normal speech MUSCULOSKELETAL:There is no evidence of acute injury.
[2019-02-11 00:48] VITALS: BP 138/80
== END 2019-02-11 00:28 | disposition home or self-care (01) ==
LOC: ED 19:07
DX: M79.602 Pain in left arm (principal); M79.10 Myalgia, unspecified site; I10 Essential (primary) hypertension; M19.90 Unspecified osteoarthritis, unspecified site; F17.200 Nicotine dependence, unspecified, uncomplicated; Z86.73 Personal history of transient ischemic attack (TIA), and cerebral infarction without residual deficits; Z79.899 Other long term (current) drug therapy
CPT/HCPCS: 36415; 70450; 80053; 80320; 82550; 82553; 82962; 84484; 85007; 85025; 85610; 85730; 93005; 93010; 99284; G0480

== ENCOUNTER 2019-02-13 15:17 | Emergency (ER) | payer SELFPAY ==
[2019-02-13] MEDS ORDERED: LORazepam 2 MG TAB PO PRN (16:44)
[2019-02-13] MEDS ORDERED: chlordiazePOXIDE 25 MG CAP PO PRN ×3 (16:44→19:04)
[2019-02-13] MEDS ORDERED: LORazepam 2 MG/ML VIAL IV PRN (16:44)
[2019-02-13] MEDS ORDERED: LORazepam 2 MG/ML VIAL IM PRN (16:44)
[2019-02-13] MEDS ORDERED: DEXTROSE 50% IN WATER (25GM) 50 ML SYRINGE IV PRN (16:45)
--- NOTE | 2019-02-13 16:46 | Emergency Department Report ---
ED General Adult HPI - General Chief complaint: Alcohol Stated complaint: ETOH Time Seen by Provider: 02/13/19 16:33 Source: patient, EMS ( EMS documentation not available at time of chart dictation ), RN notes reviewed, old records reviewed Mode of arrival: Stretcher Limitations: Physical Limitation, Other (the patient is a poor historian) - History of Present Illness Initial comments: This is a 59-year-old gentleman. I have evaluated this patient in the past. Past history includes arthritis, stroke, hypertension, alcohol dependence Patient is brought to the hospital by emergency medical services for possible alcohol consumption, and/or intoxication. Apparently, he complained of drinking one beer. In the emergency room, the patient is a poor historian. He denies physical pain. He cannot tell me if he fell. He cannot describe exacerbating or relieving factors. He is moving 4 extremities spontaneously. He is not accompanied by friends or family at this time. The patient tells me that he contacted 911 "because I had to get out of there." He tells me that he lives "the street over." However, he cannot tell me if he was by himself with or without a people, or if he has any family members that can care for him. -: unknown Radiation: other Quality: other Consistency: other Improves with: other Worsens with: other - Related Data Previous Rx's Medication Instructions Recorded Last Taken Type chlordiazePOXIDE [Librium] 25 mg PO Q6H PRN #15 capsule 01/10/19 Unknown Rx Ibuprofen [Motrin 800 MG tab] 800 mg PO Q8HR PRN #20 tablet 01/25/19 Unknown Rx Folic Acid [Folvite] 1 mg PO QDAY #30 tablet 02/10/19 Unknown Rx Multivitamin Tab [Multiple Vitamin 1 each PO QDAY #30 tablet 02/10/19 Unknown Rx TAB (Theragran)] Aspirin 325 mg PO QDAY #30 tablet 02/13/19 Unknown Rx Multivitamin with Folic Acid [Cvs 400 mcg PO QDAY #30 tablet 02/13/19 Unknown Rx One Daily Essential Tablet] Thiamine [Vitamin B-1] 100 mg PO QDAY #30 tablet 02/13/19 Unknown Rx chlordiazePOXIDE [Librium] 50 mg PO Q1HR PRN #15 capsule 02/13/19 Unknown Rx Allergies Allergy/AdvReac Type Severity Reaction Status Date / Time No Known Allergies Allergy Verified 01/24/19 22:37 ED Review of Systems ROS: Stated complaint: ETOH Other details as noted in HPI Comment: poor hitorian Cardiovascular: denies: syncope Gastrointestinal: denies: abdominal pain Psychiatric: denies: homicidal thoughts, suicidal thoughts ED Past Medical Hx - Past Medical History Previous Medical History?: Yes Hx Hypertension: Yes Hx CVA: Yes Hx Arthritis: Yes Additional medical history: Dysphagia - Surgical History Past Surgical History?: Yes Additional Surgical History: Feeding tube - Social History Smoking Status: Never Smoker Substance Use Type: Alcohol - Medications Home Medications: Home Medications Medication Instructions Recorded Confirmed Last Taken Type chlordiazePOXIDE [Librium] 25 mg PO Q6H PRN #15 capsule 01/10/19 Unknown Rx Ibuprofen [Motrin 800 MG tab] 800 mg PO Q8HR PRN #20 tablet 01/25/19 Unknown Rx Folic Acid [Folvite] 1 mg PO QDAY #30 tablet 02/10/19 Unknown Rx Multivitamin Tab [Multiple Vitamin 1 each PO QDAY #30 tablet 02/10/19 Unknown Rx TAB (Theragran)] Aspirin 325 mg PO QDAY #30 tablet 02/13/19 Unknown Rx Multivitamin with Folic Acid [[facility]vs 400 mcg PO QDAY #30 tablet 02/13/19 Unknown Rx One Daily Essential Tablet] Thiamine [Vitamin B-1] 100 mg PO QDAY #30 tablet 02/13/19 Unknown Rx chlordiazePOXIDE [Librium] 50 mg PO Q1HR PRN #15 capsule 02/13/19 Unknown Rx ED Physical Exam - General Limitations: Other (patient is disorganized, and the patient is a poor historian) General appearance: in no apparent distress, other (the patient is alert to name. The patient follows commands.) - Head Head exam: Present: atraumatic, normocephalic - Eye Eye exam: Present: normal appearance, EOMI. Absent: nystagmus Pupils: Present: other (visual acuity intact to finger counting and color perception at a close distance) - ENT ENT exam: Present: normal exam, normal orophraynx, mucous membranes moist - Neck Neck exam: Present: normal inspection, full ROM. Absent: tenderness, meningismus - Respiratory Respiratory exam: Present: normal lung sounds bilaterally. Absent: respiratory distress - Cardiovascular Cardiovascular Exam: Present: regular rate, normal rhythm, normal heart sounds. Absent: bradycardia, tachycardia, irregular rhythm, systolic murmur, diastolic murmur, rubs, gallop - GI/Abdominal GI/Abdominal exam: Present: soft, other (there is a skin tag noted on the anterior abdominal wall, likely from old feeding tube, with minimal erythema. There is no pus, streaking, or crepitus.). Absent: distended, tenderness, guarding, rebound, rigid, pulsatile mass - Rectal Rectal exam: Present: deferred - Extremities Exam Extremities exam: Present: normal inspection, full ROM, other (2+ pulses noted in the bilateral upper, lower extremities. There is no long bone tenderness. Musculoskeletal compartments are soft. The pelvis is stable.). Absent: pedal edema, calf tenderness - Back Exam Back exam: Present: normal inspection, full ROM. Absent: tenderness, CVA tenderness (R), CVA tenderness (L), paraspinal tenderness, vertebral tenderness - Neurological Exam Neurological exam: Present: alert (the patient is alert to name. The patient follows commands.), other (there is no facial droop. The tongue is midline. The extraocular movements are intact bilaterally. There is 5/5 strength bilateral upper, lower extremities, and sensation is intact to light touch in 4 extremities.) - Psychiatric Psychiatric exam: Present: flat affect - Skin Skin exam: Present: warm, dry, intact, normal color. Absent: rash ED Course Vital Signs 02/13/19 02/13/19 02/13/19 15:37 17:57 19:00 Temperature 98 F 98 F Pulse Rate 88 84 86 Respiratory 16 16 18 Rate Blood Pressure 147/82 Blood Pressure 159/85 146/78 [Left] O2 Sat by Pulse 100 96 100 Oximetry 02/14/19 02/14/19 02/14/19 00:00 04:42 04:46 Temperature Pulse Rate 73 79 Respiratory 18 15 Rate Blood Pressure 141/73 Blood Pressure 137/70 [Left] O2 Sat by Pulse 100 99 100 Oximetry 02/14/19 02/14/19 02/14/19 05:00 05:07 05:15 Temperature Pulse Rate 72 75 72 Respiratory 18 12 12 Rate Blood Pressure Blood Pressure 138/72 [Left] O2 Sat by Pulse 100 99 100 Oximetry 02/14/19 02/14/19 02/14/19 05:31 05:45 06:01 Temperature Pulse Rate 78 66 73 Respiratory 11 L 11 L 11 L Rate Blood Pressure 137/70 137/70 142/79 Blood Pressure [Left] O2 Sat by Pulse 100 100 98 Oximetry 02/14/19 02/14/19 02/14/19 06:15 06:31 06:45 Temperature Pulse Rate 80 71 68 Respiratory 14 10 L 10 L Rate Blood Pressure 142/79 142/79 142/79 Blood Pressure [Left] O2 Sat by Pulse 100 99 99 Oximetry 02/14/19 02/14/19 02/14/19 07:00 07:15 07:31 Temperature Pulse Rate 65 71 88 Respiratory 10 L 10 L 17 Rate Blood Pressure 152/74 152/74 152/74 Blood Pressure [Left] O2 Sat by Pulse 99 100 100 Oximetry 02/14/19 02/14/19 02/14/19 07:45 08:00 08:15 Temperature Pulse Rate 70 70 70 Respiratory 10 L 11 L 10 L Rate Blood Pressure 152/74 149/78 149/78 Blood Pressure [Left] O2 Sat by Pulse 99 97 99 Oximetry 02/14/19 02/14/19 02/14/19 08:31 08:45 09:00 Temperature Pulse Rate 68 64 78 Respiratory 10 L 10 L 16 Rate Blood Pressure 149/78 149/78 153/85 Blood Pressure [Left] O2 Sat by Pulse 99 99 97 Oximetry 02/14/19 02/14/19 02/14/19 09:15 09:31 09:45 Temperature Pulse Rate 99 H 84 76 Respiratory 18 14 13 Rate Blood Pressure 153/85 153/85 153/85 Blood Pressure [Left] O2 Sat by Pulse 99 100 100 Oximetry 02/14/19 02/14/19 02/14/19 10:29 10:30 10:45 Temperature Pulse Rate 79 75 81 Respiratory 14 12 11 L Rate Blood Pressure 131/63 131/63 131/63 Blood Pressure [Left] O2 Sat by Pulse 98 98 98 Oximetry 02/14/19 02/14/19 02/14/19 11:01 11:15 11:31 Temperature Pulse Rate 72 66 Respiratory 15 11 L Rate Blood Pressure 132/58 131/63 131/63 Blood Pressure [Left] O2 Sat by Pulse 94 99 97 Oximetry 02/14/19 02/14/19 02/14/19 11:45 12:01 12:15 Temperature Pulse Rate Respiratory Rate Blood Pressure 131/63 131/63 149/78 Blood Pressure [Left] O2 Sat by Pulse 99 96 98 Oximetry 02/14/19 02/14/19 02/14/19 12:31 12:45 13:00 Temperature Pulse Rate Respiratory Rate Blood Pressure 149/78 149/78 147/81 Blood Pressure [Left] O2 Sat by Pulse 99 99 97 Oximetry 02/14/19 02/14/19 02/14/19 13:15 13:31 18:33 Temperature 98.1 F Pulse Rate 89 Respiratory 16 Rate Blood Pressure 147/81 147/81 Blood Pressure 147/75 [Left] O2 Sat by Pulse 99 99 100 Oximetry 02/14/19 02/15/19 19:30 06:10 Temperature 98.9 F 98.5 F Pulse Rate 84 90 Respiratory 18 18 Rate Blood Pressure Blood Pressure 162/97 159/86 [Left] O2 Sat by Pulse 100 100 Oximetry - Reevaluation(s) Reevaluation #1: 02/13/19 19:07 Differential diagnosis, including not limited to: Alcohol intoxication, intracra nial injury, cervical spine injury, pneumonia, urinary tract infection, disorganized behavior Assessment and plan: 59-year-old gentleman with disorganized behavior and history of alcohol dependence. He is afebrile with reassuring vital signs. I the patient is protecting his airway moving 4 extremities. He is noted to be eating a meal. His screening laboratory studies so far are unremarkable, however, he is somewhat disorganized, and is accompanied with a walker. The patient at this point time does not appear to have the ability to care for himself independently. We have reconciled his medications, added on TSH, free T4, ammonia level, and requested a case management and psychiatric consultation. 02/13/19 19:09 Reevaluation #2: 02/13/19 23:27 Patient continues to be disorganized. Does not meet criteria for hospitalization. As per psychiatric team, does not meet criteria for inpatient psychiatric hospitalization. He'll be signed out pending case management evaluation and appropriate placement. ED Medical Decision Making - Lab Data Result diagrams: 02/13/19 16:35 02/13/19 16:35 Vital Signs 02/13/19 02/13/19 15:37 17:57 Temperature 98 F Pulse Rate 88 84 Respiratory 16 16 Rate Blood Pressure 147/82 Blood Pressure 159/85 [Left] O2 Sat by Pulse 100 96 Oximetry Lab Results 1002/13/19 02/13/19 Range/Units 16:35 16:35 16:35 WBC 7.1 (4.5-11.0) K/mm3 RBC 4.10 (3.65-5.03) M/mm3 Hgb 13.1 (11.8-15.2) gm/dl Hct 39.0 (35.5-45.6) % MCV 95 H (84-94) fl MCH 32 (28-32) pg MCHC 34 (32-34) % RDW 13.9 (13.2-15.2) % Plt Count 210 (140-440) K/mm3 Lymph % (Auto) 22.9 (13.4-35.0) % Baker % (Auto) 11.3 H (0.0-7.3) % Eos % (Auto) 11.4 H (0.0-4.3) % Baso % (Auto) 0.8 (0.0-1.8) % Lymph # 1.6 (1.2-5.4) K/mm3 Baker # 0.8 (0.0-0.8) K/mm3 Eos # 0.8 H (0.0-0.4) K/mm3 Baso # 0.1 (0.0-0.1) K/mm3 Seg Neutrophils % 53.6 (40.0-70.0) % Seg Neutrophils # 3.8 (1.8-7.7) K/mm3 Sodium 142 (137-145) mmol/L Potassium 3.9 (3.6-5.0) mmol/L Chloride 105.8 (98-107) mmol/L Carbon Dioxide 25 (22-30) mmol/L Anion Gap 15 mmol/L BUN 13 (9-20) mg/dL Creatinine 0.6 L (0.8-1.5) mg/dL Estimated GFR > 60 ml/min BUN/Creatinine Ratio 22 % Glucose 111 H (75-100) mg/dL Calcium 9.4 (8.4-10.2) mg/dL Salicylates (2.8-20.0) mg/dL Acetaminophen (10.0-30.0) ug/mL Plasma/Serum Alcohol < 0.01 (0-0.07) % 02/13/19 02/13/19 Range/Units 17:10 17:10 WBC (4.5-11.0) K/mm3 RBC (3.65-5.03) M/mm3 Hgb (11.8-15.2) gm/dl Hct (35.5-45.6) % MCV (84-94) fl MCH (28-32) pg MCHC (32-34) % RDW (13.2-15.2) % Plt Count (140-440) K/mm3 Lymph % (Auto) (13.4-35.0) % Baker % (Auto) (0.0-7.3) % Eos % (Auto) (0.0-4.3) % Baso % (Auto) (0.0-1.8) % Lymph # (1.2-5.4) K/mm3 Baker # (0.0-0.8) K/mm3 Eos # (0.0-0.4) K/mm3 Baso # (0.0-0.1) K/mm3 Seg Neutrophils % (40.0-70.0) % Seg Neutrophils # (1.8-7.7) K/mm3 Sodium (137-145) mmol/L Potassium (3.6-5.0) mmol/L Chloride (98-107) mmol/L Carbon Dioxide (22-30) mmol/L Anion Gap mmol/L BUN (9-20) mg/dL Creatinine (0.8-1.5) mg/dL Estimated GFR ml/min BUN/Creatinine Ratio % Glucose (75-100) mg/dL Calcium (8.4-10.2) mg/dL Salicylates < 0.3 L (2.8-20.0) mg/dL Acetaminophen < 5.0 L (10.0-30.0) ug/mL Plasma/Serum Alcohol (0-0.07) % - EKG Data -: EKG Interpreted by Ma EKG shows normal: sinus rhythm Rate: normal - EKG Data 02/13/19 19:07 The EKG today shows a sinus rhythm, 73 bpm, normal axis, QTC is 497 ms, there is left ventricular hypertrophy, there is ST abnormality in the anteroseptal leads, there is no endorsement of chest pain, the EKG is unchanged from prior from January 2019. This EKG is not consistent with ST elevation myocardial infa rction. - Radiology Data Radiology results: pending, report reviewed, image reviewed Noncontrast CT scan of the brain, cervical spine, x-ray of the chest is unr emarkable for acute disease. Critical care attestation.: If time is entered above; I have spent that time in minutes in the direct care of this critically ill patient, excluding procedure time. ED Disposition Clinical Impression: Alcohol abuse, Homelessness, Case management patient Disposition: DC- TO HOME OR SELFCARE Is pt being admited?: No Does the pt Need Aspirin: No Condition: Stable Additional Instructions: Discontinue consumption of alcohol. Take the prescription medications as directed. Follow-up with the primary care doctor within the next month. Return to emergency room right away with new, worsened, different symptoms, or symptoms not present on the initial emergency room evaluation. Prescriptions: Aspirin 325 mg PO QDAY #30 tablet Multivitamin with Folic Acid [Cvs One Daily Essential Tablet] 400 mcg PO QDAY #30 tablet chlordiazePOXIDE [Librium] 50 mg PO Q1HR PRN #15 capsule PRN Reason: Alcohol Withdrawal Thiamine [Vitamin B-1] 100 mg PO QDAY #30 tablet Referrals: PRIMARY CARE, [Primary Care Provider] - 3-5 Days [facility] [Provider Group] - 3-5 Days [facility] [Provider Group] - 3-5 Days
[2019-02-13] MEDS ORDERED: THIAMINE 100 MG, FOLIC ACID 1 MG, MULTIPLE VITAMIN/VIT K 10 ML in SODIUM CHLORIDE 0.9% ... IV ONE (17:00)
[2019-02-13 17:07] LABS: BUN/Creatinine Ratio 22; Blood Urea Nitrogen 13 mg/dL (9-20); Calcium 9.4 mg/dL (8.4-10.2); Hemolysis Index 13
--- NOTE | 2019-02-13 17:15 | XRay Report ---
CHEST 1 VIEW 02/13/2019 4:49 PM INDICATION / CLINICAL INFORMATION: etoh. Weak. COMPARISON: None available. FINDINGS: SUPPORT DEVICES: None. HEART / MEDIASTINUM: Heart is mildly enlarged for AP portable technique. LUNGS / PLEURA: No significant pulmonary or pleural abnormality. No pneumothorax. ADDITIONAL FINDINGS: Moderate S-shaped thoracic scoliosis. Moderate right shoulder degenerative arthr osis. IMPRESSION: 1. No acute pulmonary or pleural findings. Signer Name: Sandra Anthony MD Signed: 02/13/2019 5:10 PM Workstation Name: [id number]
[2019-02-13 17:31] LABS: Basophils # (Auto) 0.1 K/mm3 (0.0-0.1); Basophils % (Auto) 0.8 % (0.0-1.8); Eosinophils # (Auto) 0.8 K/mm3 (0.0-0.4); Eosinophils % (Auto) 11.4 % (0.0-4.3); Hemoglobin 13.1 gm/dl (11.8-15.2); Lymphocytes # (Auto) 1.6 K/mm3 (1.2-5.4); Lymphocytes % (Auto) 22.9 % (13.4-35.0); Mean Corpuscular HGB Conc 34 % (32-34); Mean Corpuscular Volume 95 fl (84-94); Monocytes # (Auto) 0.8 K/mm3 (0.0-0.8); Monocytes % (Auto) 11.3 % (0.0-7.3); Platelet Count 210 K/mm3 (140-440); Red Cell Distribution Width 13.9 % (13.2-15.2)
--- NOTE | 2019-02-13 18:09 | Cat Scan Report ---
CT head/brain wo con INDICATION / CLINICAL INFORMATION: 59 years Male; etoh ams unknown if trauma. TECHNIQUE: Routine CT head without contrast. All CT scans at this location are performed using CT dos e reduction for ALARA by means of automated exposure control. COMPARISON: The study is compared to the previous CT of 02/10/2019. FINDINGS: BRAIN / INTRACRANIAL CONTENTS: There are persistent old infarcts involving basal ganglia, more extens joseph on the left at. There are also chronic ischemic changes along the anterior left frontal lobe at. The above findings correlate with the previous CT at. There is no clear CT evidence of acute intracra nial hemorrhage or significant mass effect. There is mild cerebral atrophy. The ventricular system is unchanged in size and configuration. ORBITS: No significant abnormality of visualized orbits. SINUSES / MASTOIDS: No significant abnormality the visualized paranasal sinuses or mastoid air cells. CRANIOCERVICAL JUNCTION: No significant abnormality. ADDITIONAL FINDINGS: None. IMPRESSION: 1. There are multiple a persistent old the infarct as detailed above without CT evidence of acute int racranial hemorrhage or significant interval change from 02/10/2019. Signer Name: Austin Sultana MD Signed: 02/13/2019 6:05 PM Workstation Name: [id number]
--- NOTE | 2019-02-13 19:38 | Cat Scan Report ---
CT CERVICAL SPINE WITHOUT CONTRAST INDICATION / CLINICAL INFORMATION: Altered mental status. Evaluate for cervical spine injury. TECHNIQUE: Axial CT images were obtained through the cervical spine. Sagittal and coronal reformatted images wer e produced. All CT scans at this location are performed using CT dose reduction for ALARA by means of automated exposure control. COMPARISON: CT cervical spine 01/09/2019 FINDINGS: ALIGNMENT: Reversal of the cervical lordosis is noted. Patient's head is tilted towards the right at the time of this study. No additional abnormalities of alignment are identified. VERTEBRAE: No indication of fracture. DISC SPACES: Near-complete loss of disc height at C3-4, C4-5, C5-6, C6-7 and C7-T1 levels. INDIVIDUAL LEVEL ANALYSIS: C2-3: There is bony ankylosis across the facet joints bilaterally at the C2-3 level. Central spinal c anal and neuroforamina are adequately maintained. C3-4: Loss of disc height is noted. Prominent anterior osteophyte formation is observed. Posterior os teophyte lateralizes to the left. Central spinal canal is adequately maintained. Bilateral uncoverteb ral arthropathy is noted with moderate left-sided and mild right-sided neuroforaminal stenosis. C4-5: Loss of disc height is noted. Anterior osteophyte formation is a prominent finding. Bilateral u ncovertebral arthropathy is evident. Severe right-sided and mild left-sided neuroforaminal stenosis i s present at the C5 nerve root level. C5-6: Loss of disc height and disc vacuum phenomena are noted. Prominent anterior osteophyte formatio n is observed. Uncovertebral arthropathy contributes to severe bilateral foraminal stenosis. Central spinal canal is adequately maintained. C6-7: Loss of disc height is noted. Anterior osteophyte formation is evident. Bilateral uncovertebral arthropathy contributes to moderate bilateral foraminal stenosis at the C7 nerve root level. C7-T1: Loss of disc height is noted. Facet arthropathy and uncovertebral degenerative changes are pre sent with severe right-sided and moderate left-sided neuroforaminal stenosis at the C8 nerve root lev anne. CRANIOCERVICAL JUNCTION:No significant abnormality. SPINAL CANAL: No indication of central canal stenosis. PARASPINAL SOFT TISSUES: No significant abnormality. LUNG APICES: No significant abnormality of visualized lungs. IMPRESSION: 1. Widespread cervical spondylosis with multifocal neuroforaminal stenosis as described level by angela smyth above. 2. Prominent anterior osteophyte formation at multiple levels. Possibility of diffuse idiopathic skel etal hyperostosis (DISH) could be considered. 3. Similar findings were present on previous study. Signer Name: Arnold Blackwell MD Signed: 02/13/2019 7:34 PM Workstation Name: [id number]
[2019-02-13 19:51] LABS: Color,Urine Yellow (Yellow)
[2019-02-13 19:52] LABS: Bilirubin,Urine Negative (Negative); Blood,Urine Negative (Negative); Protein,Urine <15 mg/dL mg/dL (Negative); Urobilinogen,Urine < 2.0 mg/dL (<2.0); WBC,Urine < 1.0 /HPF (0.0-6.0)
[2019-02-13 19:57] LABS: Amphetamine Screen,Urine PRESUMPTIVE NEGATIVE; Benzodiazepines Screen,Urine PRESUMPTIVE NEGATIVE; Cannabinoid Screen,Urine PRESUMPTIVE NEGATIVE; Cocaine Screen,Urine PRESUMPTIVE NEGATIVE; Methadone Screen,Urine PRESUMPTIVE NEGATIVE; Opiate Screen,Urine PRESUMPTIVE NEGATIVE
[2019-02-14] MEDS: ASPIRIN 325 MG TAB PO SCH (09:40)
[2019-02-14] MEDS: THIAMINE 100 MG TAB PO SCH (09:41)
[2019-02-14] MEDS: MULTIVITAMINS ,THERAPEUTIC TAB PO SCH (09:41)
[2019-02-15 06:24] VITALS: BP 159/86
[2019-02-15] MEDS: THIAMINE 100 MG TAB PO SCH (10:36)
[2019-02-15] MEDS: ASPIRIN 325 MG TAB PO SCH (10:36)
[2019-02-15] MEDS: MULTIVITAMINS ,THERAPEUTIC TAB PO SCH (10:36)
== END 2019-02-15 10:51 | disposition home or self-care (01) ==
LOC: ED 15:17
DX: F10.10 Alcohol abuse, uncomplicated (principal); R41.82 Altered mental status, unspecified; I10 Essential (primary) hypertension; M19.90 Unspecified osteoarthritis, unspecified site; Z59.0 Homelessness; Z86.73 Personal history of transient ischemic attack (TIA), and cerebral infarction without residual deficits; Z79.899 Other long term (current) drug therapy
CPT/HCPCS: 36415; 70450; 71045; 72125; 80048; 80307; 81001; 82140; 82550; 83735; 84439; 84443; 85025; 87086; 93005; 93010; 96365; 96366; 99285; J3411; J7030; 80320; G0480

== ENCOUNTER 2019-02-28 18:37 | Emergency (ER) | payer SELFPAY ==
--- NOTE | 2019-02-28 19:02 | Emergency Department Report ---
ED Alcohol HPI - General Stated Complaint: ETOH Source: patient, EMS Mode of arrival: Stretcher Limitations: Other - History of Present Illness Initial Comments: Is a 59-year-old male that presents emergency room with complaints of acute intoxication. Patient states he takes a couple shots every day. Patient denies pain patient patient denies head injury. Patient denies passing out. Patient states he just needs a place to stay. MD Complaint: alcohol intoxication Last Drink: just TOUCH UP WORK[employer] Chronic Alcohol Use: Yes Previous Visits for Alcohol Intoxication?: Yes Recent Trauma: No Associated Symptoms: denies other symptoms Treatments Prior to Arrival: none - Related Data Previous Rx's Medication Instructions Recorded Last Taken Type chlordiazePOXIDE [Librium] 25 mg PO Q6H PRN #15 capsule 01/10/19 Unknown Rx Ibuprofen [Motrin 800 MG tab] 800 mg PO Q8HR PRN #20 tablet 01/25/19 Unknown Rx Folic Acid [Folvite] 1 mg PO QDAY #30 tablet 02/10/19 Unknown Rx Multivitamin Tab [Multiple Vitamin 1 each PO QDAY #30 tablet 02/10/19 Unknown Rx TAB (Theragran)] Aspirin 325 mg PO QDAY #30 tablet 02/13/19 Unknown Rx Multivitamin with Folic Acid [[facility] 400 mcg PO QDAY #30 tablet 02/13/19 Unknown Rx One Daily Essential Tablet] Thiamine [Vitamin B-1] 100 mg PO QDAY #30 tablet 02/13/19 Unknown Rx chlordiazePOXIDE [Librium] 50 mg PO Q1HR PRN #15 capsule 02/13/19 Unknown Rx Allergies Allergy/AdvReac Type Severity Reaction Status Date / Time No Known Allergies Allergy Verified 01/24/19 22:37 ED Review of Systems ROS: Stated complaint: ETOH Other details as noted in HPI Constitutional: denies: chills, fever Eyes: denies: eye pain, eye discharge, vision change ENT: denies: ear pain, throat pain Respiratory: denies: cough, shortness of breath, wheezing Cardiovascular: denies: chest pain, palpitations Endocrine: no symptoms reported Gastrointestinal: denies: abdominal pain, nausea, diarrhea Genitourinary: denies: urgency, dysuria Musculoskeletal: denies: back pain, joint swelling, arthralgia Skin: denies: rash, lesions Neurological: denies: headache, weakness, paresthesias Psychiatric: denies: anxiety, depression Hematological/Lymphatic: denies: easy bleeding, easy bruising ED Past Medical Hx - Past Medical History Previous Medical History?: Yes Hx Hypertension: Yes Hx CVA: Yes Hx Arthritis: Yes Additional medical history: Dysphagia - Surgical History Additional Surgical History: Feeding tube - Social History Smoking Status: Never Smoker Substance Use Type: Alcohol - Medications Home Medications: Home Medications Medication Instructions Recorded Confirmed Last Taken Type chlordiazePOXIDE [Librium] 25 mg PO Q6H PRN #15 capsule 01/10/19 Unknown Rx Ibuprofen [Motrin 800 MG tab] 800 mg PO Q8HR PRN #20 tablet 01/25/19 Unknown Rx Folic Acid [Folvite] 1 mg PO QDAY #30 tablet 02/10/19 Unknown Rx Multivitamin Tab [Multiple Vitamin 1 each PO QDAY #30 tablet 02/10/19 Unknown Rx TAB (Theragran)] Aspirin 325 mg PO QDAY #30 tablet 02/13/19 Unknown Rx Multivitamin with Folic Acid [[facility] 400 mcg PO QDAY #30 tablet 02/13/19 Unknown Rx One Daily Essential Tablet] Thiamine [Vitamin B-1] 100 mg PO QDAY #30 tablet 02/13/19 Unknown Rx chlordiazePOXIDE [Librium] 50 mg PO Q1HR PRN #15 capsule 02/13/19 Unknown Rx ED Physical Exam - General Limitations: No Limitations General appearance: alert, in no apparent distress - Head Head exam: Present: atraumatic, normocephalic - Eye Eye exam: Present: normal appearance, PERRL Pupils: Present: normal accommodation - ENT ENT exam: Present: mucous membranes dry - Neck Neck exam: Present: normal inspection - Respiratory Respiratory exam: Present: normal lung sounds bilaterally. Absent: respiratory distress, wheezes, rales - Cardiovascular Cardiovascular Exam: Present: regular rate, normal rhythm. Absent: systolic murmur, diastolic murmur, rubs, gallop - GI/Abdominal GI/Abdominal exam: Present: soft, normal bowel sounds. Absent: distended, tenderness, guarding, rebound - Rectal Rectal exam: Present: deferred - Extremities Exam Extremities exam: Present: normal inspection - Back Exam Back exam: Present: normal inspection - Neurological Exam Neurological exam: Present: alert, oriented X3 - Psychiatric Psychiatric exam: Present: normal affect, normal mood - Skin Skin exam: Present: warm, dry, intact, normal color. Absent: rash ED Course Vital Signs 02/28/19 20:51 Respiratory 18 Rate - Reevaluation(s) Reevaluation #1: I discussed all results with patient. I discussed plan of care with patient. Patient agrees with plan of care. Patient is stable for discharge. Patient will be discharged home. Patient given discharge instructions. Patient voiced understanding of discharge instructions. 03/01/19 00:03 ED Medical Decision Making - Lab Data Result diagrams: 02/28/19 21:55 02/28/19 21:55 - Medical Decision Making Patient is a 59-year-old male that presents emergency room with acute intoxication and homelessness. Patient states he needs a place to stay. Patient medically clear. Patient's blood alcohol lower the legal limit. Patient's labs unremarkable. Patient is stable for discharge. Patient discharg ed home. Patient will have a case management consult for placement. - Differential Diagnosis acute intox. Critical care attestation.: If time is entered above; I have spent that time in minutes in the direct care of this critically ill patient, excluding procedure time. ED Disposition Clinical Impression: Alcohol abuse, Homelessness, Case management patient Disposition: DC-01 TO HOME OR SELFCARE Is pt being admited?: No Does the pt Need Aspirin: No Condition: Stable Instructions: Abuse of Alcohol (ED), Alcohol Intoxication (ED), At-Risk Alcohol Use (ED) Additional Instructions: Patient to follow-up with primary care in 2-3 days. Patient to return to ER if condition worsens. Patient to rest. Patient to increase water. Patient to take meds as directed. Patient's take Tylenol or ibuprofen when necessary for pain. Referrals: PRIMARY CARE,MD [Primary Care Provider] - 2-3 Days Time of Disposition: 00:06
[2019-02-28] MEDS ORDERED: SODIUM CHLORIDE 0.9% 1000 ML 1,000 ML IV ONE (19:03)
[2019-02-28] MEDS ORDERED: THIAMINE 100 MG, FOLIC ACID 1 MG, MULTIPLE VITAMIN INJ, ADULT 10 ML in SODIUM CHLORIDE ... IV ONE (19:03)
[2019-02-28 22:28] LABS: Basophils # (Auto) 0.1 K/mm3 (0.0-0.1); Basophils % (Auto) 1.1 % (0.0-1.8); Eosinophils # (Auto) 0.4 K/mm3 (0.0-0.4); Eosinophils % (Auto) 4.2 % (0.0-4.3); Hematocrit 37.6 % (35.5-45.6); Hemoglobin 12.5 gm/dl (11.8-15.2); Lymphocytes # (Auto) 1.7 K/mm3 (1.2-5.4); Lymphocytes % (Auto) 20.6 % (13.4-35.0); Mean Corpuscular HGB Conc 33 % (32-34); Mean Corpuscular Volume 96 fl (84-94); Monocytes # (Auto) 0.7 K/mm3 (0.0-0.8); Monocytes % (Auto) 8.7 % (0.0-7.3); Platelet Count 261 K/mm3 (140-440); Red Blood Count 3.93 M/mm3 (3.65-5.03); Red Cell Distribution Width 14.5 % (13.2-15.2)
[2019-02-28 23:37] LABS: Alanine Aminotransferase 20 units/L (7-56); Albumin 3.4 g/dL (3.9-5); BUN/Creatinine Ratio 38; Blood Urea Nitrogen 19 mg/dL (9-20); Calcium 8.9 mg/dL (8.4-10.2); Hemolysis Index 49
[2019-03-01 00:26] VITALS: BP 134/70
[2019-03-01 00:51] LABS: Amphetamine Screen,Urine PRESUMPTIVE NEGATIVE; Benzodiazepines Screen,Urine PRESUMPTIVE NEGATIVE; Cannabinoid Screen,Urine PRESUMPTIVE NEGATIVE; Cocaine Screen,Urine PRESUMPTIVE NEGATIVE; Methadone Screen,Urine PRESUMPTIVE NEGATIVE; Opiate Screen,Urine PRESUMPTIVE NEGATIVE
[2019-03-01 00:53] LABS: Bilirubin,Urine NEG (Negative); Blood,Urine NEG (Negative); Color,Urine Yellow (Yellow); Mucus,Urine FEW /HPF; Protein,Urine <15 mg/dL mg/dL (Negative); WBC,Urine < 1.0 /HPF (0.0-6.0)
== END 2019-03-02 08:30 | disposition home or self-care (01) ==
LOC: ED 18:37
DX: F10.129 Alcohol abuse with intoxication, unspecified (principal); I10 Essential (primary) hypertension; M19.90 Unspecified osteoarthritis, unspecified site; Z59.0 Homelessness; Z86.73 Personal history of transient ischemic attack (TIA), and cerebral infarction without residual deficits; Z98.890 Other specified postprocedural states
CPT/HCPCS: 36415; 80053; 80307; 81001; 85025; 96365; 96366; 99284; J3411; J7030; 80320; G0480

== ENCOUNTER 2019-03-29 10:28 | Emergency (ER) | payer SELFPAY ==
[2019-03-29] MEDS ORDERED: SODIUM CHLORIDE 0.9% 1000 ML 1,000 ML IV ONE (10:57)
--- NOTE | 2019-03-29 11:04 | Emergency Department Report ---
ED General Adult HPI - General Chief complaint: Altered Mental Status Stated complaint: AMS Time Seen by Provider: 03/29/19 10:44 - History of Present Illness Initial comments: This is a 59-year-old male found outside walking in the neighborhood neighbors called ambulance. Patient with no current complaints he has no signs of trauma. He is cooperative and calm following instructions. Pt denies any complaints. Speech unclear questionable intoxication . Associated Symptoms: denies other symptoms - Related Data Previous Rx's Medication Instructions Recorded Last Taken Type chlordiazePOXIDE [Librium] 25 mg PO Q6H PRN #15 capsule 01/10/19 Unknown Rx Ibuprofen [Motrin 800 MG tab] 800 mg PO Q8HR PRN #20 tablet 01/25/19 Unknown Rx Folic Acid [Folvite] 1 mg PO QDAY #30 tablet 02/10/19 Unknown Rx Multivitamin Tab [Multiple Vitamin 1 each PO QDAY #30 tablet 02/10/19 Unknown Rx TAB (Theragran)] Aspirin 325 mg PO QDAY #30 tablet 02/13/19 Unknown Rx Multivitamin with Folic Acid [[facility]vs 400 mcg PO QDAY #30 tablet 02/13/19 Unknown Rx One Daily Essential Tablet] Thiamine [Vitamin B-1] 100 mg PO QDAY #30 tablet 02/13/19 Unknown Rx chlordiazePOXIDE [Librium] 50 mg PO Q1HR PRN #15 capsule 02/13/19 Unknown Rx Allergies Allergy/AdvReac Type Severity Reaction Status Date / Time No Known Allergies Allergy Verified 01/24/19 22:37 ED Review of Systems ROS: Stated complaint: AMS Other details as noted in HPI Comment: All other systems reviewed and negative Cardiovascular: denies: chest pain Gastrointestinal: denies: abdominal pain ED Past Medical Hx - Past Medical History Hx Hypertension: Yes Hx CVA: Yes Hx Arthritis: Yes Additional medical history: Dysphagia - Surgical History Additional Surgical History: Feeding tube - Social History Smoking Status: Never Smoker Substance Use Type: Alcohol - Medications Home Medications: Home Medications Medication Instructions Recorded Confirmed Last Taken Type chlordiazePOXIDE [Librium] 25 mg PO Q6H PRN #15 capsule 01/10/19 Unknown Rx Ibuprofen [Motrin 800 MG tab] 800 mg PO Q8HR PRN #20 tablet 01/25/19 Unknown Rx Folic Acid [Folvite] 1 mg PO QDAY #30 tablet 02/10/19 Unknown Rx Multivitamin Tab [Multiple Vitamin 1 each PO QDAY #30 tablet 02/10/19 Unknown Rx TAB (Theragran)] Aspirin 325 mg PO QDAY #30 tablet 02/13/19 Unknown Rx Multivitamin with Folic Acid [[facility] 400 mcg PO QDAY #30 tablet 02/13/19 Unknown Rx One Daily Essential Tablet] Thiamine [Vitamin B-1] 100 mg PO QDAY #30 tablet 02/13/19 Unknown Rx chlordiazePOXIDE [Librium] 50 mg PO Q1HR PRN #15 capsule 02/13/19 Unknown Rx ED Physical Exam - General Limitations: Altered Mental Status General appearance: alert, appears intoxicated - Head Head exam: Present: atraumatic - Eye Eye exam: Present: normal appearance - ENT ENT exam: Present: normal exam, other (full dentures) - Neck Neck exam: Present: normal inspection - Respiratory Respiratory exam: Present: normal lung sounds bilaterally - Cardiovascular Cardiovascular Exam: Present: regular rate, normal rhythm - GI/Abdominal GI/Abdominal exam: Present: soft, normal bowel sounds. Absent: distended, tenderness, guarding, rebound - Extremities Exam Extremities exam: Present: normal inspection - Back Exam Back exam: Present: normal inspection - Neurological Exam Neurological exam: Present: alert (person and place), normal gait, other - Skin Skin exam: Present: warm, dry, intact, normal color ED Course Vital Signs 03/29/19 03/29/19 03/29/19 10:57 16:50 19:30 Temperature 97.7 F 98.2 F Pulse Rate 54 L 80 80 Respiratory 11 L 18 20 Rate Blood Pressure 158/72 Blood Pressure 158/72 144/78 149/72 [Left] O2 Sat by Pulse 98 97 99 Oximetry - Reevaluation(s) Reevaluation #1: 03/29/19 13:09 Etoh negative pt without results. CT of brain/head ordered Reevaluation #2: 03/29/19 17:02 Pt sitting up in chair in his room. He is oriented x 2. Unable to state clearly where and with home he lives with. He's incontinent of urine. Nurse called emergency numbers listed one number is to Alf and the other number is to abbi eone that states he is not involved to the care of Mr. Jenna Tamayo. Social work consult is still pending to assist with safe discharge. ED Medical Decision Making - Lab Data Result diagrams: 03/29/19 11:15 03/29/19 11:15 - Radiology Data Radiology results: report reviewed CT head FINDINGS: BRAIN/INTRACRANIAL STRUCTURES: Unenhanced CT images of the brain demonstrate no evidence of acute intracranial abnormality. Ventricles and sulci are prominent in size, consistent with diffuse cerebral atrophy. Chronic white matter hypoattenuation is present in the cerebral hemispheric white matter, consistent with chronic small vessel ischemic change. There is no CT evidence of acute ischemic injury, hemorrhage, or mass. There are no abnormal extra- axial fluid collections. Small focal area of left frontal cortical encephalomalacia is also noted. There has been no change when compared to the prior exam from 02/13/2019 EXTRACRANIAL STRUCTURES: Unremarkable. - Medical Decision Making 59 yo found walking outside and brought in by EMS. Labs are unremarkable with negative ETOH. Ct of head no acute findings. He is altered and unable to give an address to his residence. He states that he resides with his daughter Chidi (?) in [place] he does not have phone # or address. Findings and plan reviewed with Dr. Mckeon pt to be evaluated by pass worker for safe discharge plan. I observed him walking with steady gait. He's cooperative and pleasantly confused. Patient doing well this morning. Alert ,Pleasant talking denying any complaints. He has been evaluated by geriatric social worker. He is provided with transportation to his home. His home is in [facility] which was verified by a geriatric social worker patient given a breeze pass. Critical Care Time: No Critical care attestation.: If time is entered above; I have spent that time in minutes in the direct care of this critically ill patient, excluding procedure time. ED Disposition Clinical Impression: Altered mental status Qualifiers: Altered mental status type: disorientation Qualified Code(s): R41.0 - Disorientation, unspecified Disposition: DC-01 TO HOME OR SELFCARE Is pt being admited?: No Does the pt Need Aspirin: No Condition: Stable Instructions: Fall Prevention for Older Adults (ED) Additional Instructions: Please follow up at [facility] in 3-5 days. Drink plenty fluids rest . Eat three balanced meals daily. Take care of your skin by showering daily and apply lotion to stay moisturized. [facility] ATIL[facility] [Primary Care Provider] - 3-5 Days Time of Disposition: 09:40
[2019-03-29 11:46] LABS: Hematocrit 42.8 % (35.5-45.6); Hemoglobin 14.3 gm/dl (11.8-15.2); Mean Corpuscular HGB Conc 34 % (32-34); Mean Corpuscular Volume 95 fl (84-94); Platelet Count 234 K/mm3 (140-440); Red Blood Count 4.52 M/mm3 (3.65-5.03); Red Cell Distribution Width 14.4 % (13.2-15.2)
[2019-03-29 11:56] LABS: Alanine Aminotransferase 17 units/L (7-56); Albumin 3.9 g/dL (3.9-5); BUN/Creatinine Ratio 28; Blood Urea Nitrogen 17 mg/dL (9-20); Calcium 9.5 mg/dL (8.4-10.2); Hemolysis Index 31
--- NOTE | 2019-03-29 14:58 | Cat Scan Report ---
CT BRAIN: WITHOUT CONTRAST INDICATION / CLINICAL INFORMATION: cognitive impairment. COMPARISON: None available. FINDINGS: BRAIN/INTRACRANIAL STRUCTURES: Unenhanced CT images of the brain demonstrate no evidence of acute int racranial abnormality. Ventricles and sulci are prominent in size, consistent with diffuse cerebral atrophy. Chronic white matter hypoattenuation is present in the cerebral hemispheric white matter, consistent with chronic small vessel ischemic change. There is no CT evidence of acute ischemic injury, hemorrhage, or mass. There are no abnormal extra-ax ial fluid collections. Small focal area of left frontal cortical encephalomalacia is also noted. There has been no change when compared to the prior exam from 02/13/2019 EXTRACRANIAL STRUCTURES: Unremarkable. IMPRESSION: No acute abnormality. Chronic age-related ischemic changes. All CT scans at this location are performed using dose reduction to ALARA by means of automated expos ure control. Signer Name: Mane Quevedo MD Signed: 03/29/2019 2:53 PM Workstation Name: [id number]
[2019-03-30 10:21] VITALS: BP 137/82
== END 2019-03-30 10:21 | disposition home or self-care (01) ==
LOC: ED 10:28
DX: R41.82 Altered mental status, unspecified (principal); I10 Essential (primary) hypertension; M19.90 Unspecified osteoarthritis, unspecified site; Z86.73 Personal history of transient ischemic attack (TIA), and cerebral infarction without residual deficits; Z98.890 Other specified postprocedural states
CPT/HCPCS: 36415; 70450; 80053; 85027; 96360; 96361; 99284; J7030; 80320; G0480

== ENCOUNTER 2019-04-06 18:39 | Emergency (ER) | payer SELFPAY ==
[2019-04-06 19:03] VITALS: BP 167/89
--- NOTE | 2019-04-06 21:37 | Emergency Department Report ---
Chief Complaint: Extremity Injury, Lower Stated Complaint: LT LEG/RT KNEE PAIN Time Seen by Provider: 04/06/19 21:32 - HPI History of Present Illness: 59 year old -Citizen Of [place] male with a significant past medical history of arthritis, CVA, hypertension, dysphasia presents to the emergency room complaining of left leg pain and right elbow pain since July. Patient reports he is walking with a cane since July. Patient comes in requesting something to eat. When asked what made an emergency today patient reports he wanted to get away from his nephew as he was getting on his nerves. Patient denies any chest pain shortness of breathing. - ROS Review of Systems: chronic leg pain. - Exam Vital Signs: Vital Signs 04/06/19 19:01 Temperature 98.3 F Pulse Rate 79 Respiratory 18 Rate Blood Pressure 167/89 O2 Sat by Pulse 100 Oximetry Physical Exam: Gen: alert oriented NAD Cardic: regular rate and rhythm no murmurs appreciated Resp: Clear to auscultation bilateral no wheezing no rales or rhonchi. Abdomen: Soft nontender nondistended normal bowel sounds. Ablating well with a cane MSE screening note: Focused history and physical exam performed. Due to findings the following was ordered: 59 year old -Citizen Of [place] male with a significant past medical history of arthritis, CVA, hypertension, dysphasia presents to the emergency room complaining of left leg pain and right elbow pain since July. Patient reports he is walking with a cane since July. Patient comes in requesting something to eat. When asked what made an emergency today patient reports he wanted to get away from his nephew as he was getting on his nerves. Patient denies any chest pain shortness of breathing. Patient to take Tylenol or ibuprofen for pain management. Patient is to follow- up with his primary care provider. ED Disposition for MSE Condition: Stable
== END 2019-04-06 22:13 | disposition left against medical advice (07) ==
LOC: ED 18:39
DX: M25.521 Pain in right elbow (principal); M79.605 Pain in left leg; I10 Essential (primary) hypertension; M19.90 Unspecified osteoarthritis, unspecified site; Z86.73 Personal history of transient ischemic attack (TIA), and cerebral infarction without residual deficits

== ENCOUNTER 2019-04-10 16:01 | Emergency (ER) | payer SELFPAY ==
[2019-04-10 17:17] VITALS: BP 125/83
--- NOTE | 2019-04-10 17:34 | Emergency Department Report ---
Chief Complaint: Extremity Problem,Nontraumatic Stated Complaint: LFT LEG PAIN Time Seen by Provider: 04/10/19 17:31 - HPI History of Present Illness: pt is a 59 yo male who presents to the ED with c/o chronic left thigh pain that began 8 months ago. he denies any fall or injury. he denies any edema of the leg, no numbness, weakness, or bowel bladder incontinence. pt does walk with a cane. he states he has seen his doctor for this and was told he has arthritis. initial vital in triage with elevated heart rate after walking around which improved upon repeat On exam Full range of motion of the bilateral lower extremities, no edema, no joint laxity, no skin changes, no skin ulcers, neurovascularly intact, no erythema, no drainage, no TTP of the BLE No clinical signs of symptoms of cellulitis, vascular deficiency, or DVT pt has had no acute trauma, no need for emergent imaging pt is presenting with a non-medical emergency at this time Medical screening exam performed, there is no threat to life or limb at this time will have patient follow-up with a primary care provider advised pt may take tylenol or ibuprofen for any discomfort. may use ice pack, heating pad, rest, epsom salt bath. follow up with a primary care doctor and an orthopedic doctor. return to the emergency room for any new or worsening symptoms. - Exam Vital Signs: Vital Signs 04/10/19 04/10/19 17:15 17:24 Temperature 98.5 F Pulse Rate 121 H 104 H Respiratory 20 17 Rate Blood Pressure 125/83 O2 Sat by Pulse 96 100 Oximetry MSE screening note: Focused history and physical exam performed. ED Disposition for MSE Clinical Impression: Chronic pain of left lower extremity Disposition: Z-01 MED SCREENING EXAM-CONT Is pt being admited?: No Does the pt Need Aspirin: No Condition: Stable Instructions: Arthralgia (ED) Additional Instructions: may take tylenol or ibuprofen for any discomfort. may use ice pack, heating pad, rest, epsom salt bath. follow up with a primary care doctor and an orthopedic doctor. return to the emergency room for any new or worsening symptoms. Referrals: JAEL MESA MD [Staff Physician] - 2-3 Days [facility] [Outside] - 2-3 Days FRANCK STEVEN MD [Staff Physician] - 2-3 Days Time of Disposition: 17:33 Print Language: HUNGARIAN
== END 2019-04-10 17:57 | disposition home or self-care (01) ==
LOC: ED 16:01
DX: M79.662 Pain in left lower leg (principal)
CPT/HCPCS: 99282

== ENCOUNTER 2019-05-17 10:22 | Emergency (ER) | payer MEDICAID ==
[2019-05-17] MEDS ORDERED: CYCLOBENZAPRINE 10 MG TAB PO ONE (10:53)
--- NOTE | 2019-05-17 10:58 | Emergency Department Report ---
HPI - General Chief Complaint: Urogenital-Male Time Seen by Provider: 05/17/19 10:41 - HPI HPI: Room 18 The patient is a 59-year-old male presenting with a chief complaint of left thigh cramping. Patient states she developed cramping in his left thigh this morning intermittently. Patient denies any recent trauma. Patient denies testicular pain. Patient denies any other forms of pain Location: [See above] Duration: [See above] Quality: [See above] Severity: [See above] Timing: [See above] Context: [See above] Modifying factors: [See above] Associated signs and symptoms: [see above] ED Past Medical Hx - Past Medical History Previous Medical History?: Yes Hx Hypertension: Yes Hx CVA: Yes Hx Arthritis: Yes Additional medical history: Dysphagia - Surgical History Additional Surgical History: Feeding tube-removed - Family History Family history: no significant - Social History Smoking Status: Current Every Day Smoker (1/3 pack per day) Substance Use Type: None (denies illicit drug use), Alcohol (daily) - Medications Home Medications: Home Medications Medication Instructions Recorded Confirmed Last Taken Type chlordiazePOXIDE [Librium] 25 mg PO Q6H PRN #15 capsule 01/10/19 Unknown Rx Ibuprofen [Motrin 800 MG tab] 800 mg PO Q8HR PRN #20 tablet 01/25/19 Unknown Rx Folic Acid [Folvite] 1 mg PO QDAY #30 tablet 02/10/19 Unknown Rx Multivitamin Tab [Multiple Vitamin 1 each PO QDAY #30 tablet 02/10/19 Unknown Rx TAB (Theragran)] Aspirin 325 mg PO QDAY #30 tablet 02/13/19 Unknown Rx Multivitamin with Folic Acid [[facility] 400 mcg PO QDAY #30 tablet 02/13/19 Unknown Rx One Daily Essential Tablet] Thiamine [Vitamin B-1] 100 mg PO QDAY #30 tablet 02/13/19 Unknown Rx chlordiazePOXIDE [Librium] 50 mg PO Q1HR PRN #15 capsule 02/13/19 Unknown Rx Cyclobenzaprine [Flexeril] 10 mg PO TID PRN #14 tablet 05/17/19 Unknown Rx Ibuprofen [Motrin 800 MG tab] 800 mg PO Q8HR PRN #20 tablet 05/17/19 Unknown Rx ED Review of Systems ROS: Stated complaint: GROIN PAIN Other details as noted in HPI Constitutional: no symptoms reported Eyes: denies: eye pain ENT: denies: throat pain Respiratory: no symptoms reported Cardiovascular: denies: chest pain Endocrine: no symptoms reported Gastrointestinal: denies: abdominal pain Genitourinary: denies: dysuria Musculoskeletal: myalgia Neurological: denies: headache Physical Exam - Physical Exam Vital Signs: Vital Signs 05/17/19 10:45 Temperature 97.4 F L Pulse Rate 80 Respiratory 18 Rate Blood Pressure 131/77 [Right] O2 Sat by Pulse 98 Oximetry Physical Exam: GENERAL: The patient is well-developed well-nourished male lying on stretcher not appearing to be in acute distress. [] HEENT: Normocephalic. Atraumatic. Extraocular motions are intact. Patient has moist mucous membranes. NECK: Supple. Trachea midline CHEST/LUNGS: Clear to auscultation. There is no respiratory distress noted. HEART/CARDIOVASCULAR: Regular. There is no tachycardia. There is no gallop rub or murmur. 2+ left DP ABDOMEN: Abdomen is soft, nontender. Patient has normal bowel sounds. There is no abdominal distention. SKIN: There is no rash. There is no edema. There is no diaphoresis. NEURO: The patient is awake, alert, and oriented. The patient is cooperative. The patient has no focal neurologic deficits. The patient has normal speech MUSCULOSKELETAL: There is no evidence of acute injury. ED Course Vital Signs 05/17/19 10:45 Temperature 97.4 F L Pulse Rate 80 Respiratory 18 Rate Blood Pressure 131/77 [Right] O2 Sat by Pulse 98 Oximetry - Reevaluation(s) Reevaluation #1: 05/17/19 13:35 Patient resting comfortably. Patient updated on test results ED Medical Decision Making - Lab Data Result diagrams: 05/17/19 11:05 05/17/19 13:00 Laboratory Tests 05/17/19 05/17/19 05/17/19 11:05 11:05 13:00 WBC 8.8 RBC 4.67 Hgb 14.6 Hct 44.3 MCV 95 H MCH 31 MCHC 33 RDW 15.7 H Plt Count 258 Lymph % (Auto) 17.3 Mellette % (Auto) 10.0 H Eos % (Auto) 6.7 H Baso % (Auto) 1.0 Lymph # 1.5 Mellette # 0.9 H Eos # 0.6 H Baso # 0.1 Seg Neutrophils % 65.0 Seg Neutrophils # 5.7 Sodium TNR 138 Potassium TNR 4.3 Chloride TNR 98.1 Carbon Dioxide TNR 24 Anion Gap TNR 20 BUN TNR 15 Creatinine TNR 0.7 L Estimated GFR TNR > 60 BUN/Creatinine Ratio TNR 21 Glucose TNR 90 Calcium TNR 10.7 H Magnesium TNR 2.10 Total Creatine Kinase TNR 253 H - Radiology Data Radiology results: report reviewed (left hip x-ray), image reviewed (left hip x- ray) interpreted by me: Left hip x-ray-no acute fracture [facility] [address] [place] [address] XRay Report Signed Patient: TOÑO ROSENBERG MR#: [id number] 10 : 1960 Acct:[id number] Age/Sex: 59 / M ADM Date: 05/17/19 Loc: ED Attending Dr: Ordering Physician: CASS HEATON MD Date of Service: 05/17/19 Procedure(s): XR hip 2-3V LT Accession Number(s): [id number] cc: CASS HEATON MD Fluoro Time In Minutes: LEFT HIP 2 VIEW(S) INDICATION / CLINICAL INFORMATION: pain and spasms COMPARISON: None available. FINDINGS: BONES / JOINT(S): No acute fracture or subluxation. Mild osteoporosis of the left hip. Severe osteoarthrosis of the right hip. SOFT TISSUES: Calcific tendinopathy at the right greater trochanter. Signer Name: Vinnie Stevenson MD Signed: 05/17/2019 11:13 AM Workstation Name: [id number] Transcribed By: SONJA Dictated By: Vinnie Stevenson MD Electronically Authenticated By: Vinnie Stevenson MD Signed Date/Time: 05/17/19 1113 DD/ 1112 TD/TT: - Differential Diagnosis muscle cramp, occult fracture, rhabdomyolysis Critical care attestation.: If time is entered above; I have spent that time in minutes in the direct care of this critically ill patient, excluding procedure time. ED Disposition Clinical Impression: Muscle spasm of left lower extremity Disposition: DC-01 TO HOME OR SELFCARE Is pt being admited?: No Does the pt Need Aspirin: No Condition: Stable Instructions: Muscle Spasm (ED) Additional Instructions: Return to the emergency department should you develop worsening symptoms, inability to tolerate food or liquids, high fever or any other concerns Prescriptions: Cyclobenzaprine [Flexeril] 10 mg PO TID PRN #14 tablet PRN Reason: Muscle Spasm Ibuprofen [Motrin 800 MG tab] 800 mg PO Q8HR PRN #20 tablet PRN Reason: Pain, Moderate (4-6) Referrals: FRANCK MIDDLETON MD [Staff Physician] - 3-5 Days (Dr. Middleton is an orthopedic surgeon. Please follow up with him for further evaluation) Time of Disposition: 13:34
--- NOTE | 2019-05-17 11:18 | XRay Report ---
LEFT HIP 2 VIEW(S) INDICATION / CLINICAL INFORMATION: pain and spasms COMPARISON: None available. FINDINGS: BONES / JOINT(S): No acute fracture or subluxation. Mild osteoporosis of the left hip. Severe osteoar throsis of the right hip. SOFT TISSUES: Calcific tendinopathy at the right greater trochanter. Signer Name: Vinnie Stevenson MD Signed: 05/17/2019 11:13 AM Workstation Name: [id number]
[2019-05-17 11:45] LABS: Basophils # (Auto) 0.1 K/mm3 (0.0-0.1); Eosinophils # (Auto) 0.6 K/mm3 (0.0-0.4); Eosinophils % (Auto) 6.7 % (0.0-4.3); Hematocrit 44.3 % (35.5-45.6); Hemoglobin 14.6 gm/dl (11.8-15.2); Lymphocytes # (Auto) 1.5 K/mm3 (1.2-5.4); Lymphocytes % (Auto) 17.3 % (13.4-35.0); Mean Corpuscular HGB Conc 33 % (32-34); Mean Corpuscular Volume 95 fl (84-94); Monocytes # (Auto) 0.9 K/mm3 (0.0-0.8); Platelet Count 258 K/mm3 (140-440); Red Blood Count 4.67 M/mm3 (3.65-5.03); Red Cell Distribution Width 15.7 % (13.2-15.2)
[2019-05-17 12:32] LABS: BUN/Creatinine Ratio TNR; Blood Urea Nitrogen TNR mg/dL (9-20); Calcium TNR mg/dL (8.4-10.2)
[2019-05-17 12:33] LABS: Hemolysis Index TNR
[2019-05-17 13:18] LABS: BUN/Creatinine Ratio 21; Blood Urea Nitrogen 15 mg/dL (9-20); Calcium 10.7 mg/dL (8.4-10.2); Hemolysis Index 5
[2019-05-17 14:06] VITALS: BP 151/76
== END 2019-05-17 14:00 | disposition home or self-care (01) ==
LOC: ED 10:22
DX: M62.838 Other muscle spasm (principal); M79.652 Pain in left thigh; I10 Essential (primary) hypertension; M19.90 Unspecified osteoarthritis, unspecified site; Z86.73 Personal history of transient ischemic attack (TIA), and cerebral infarction without residual deficits; F17.200 Nicotine dependence, unspecified, uncomplicated; Z98.890 Other specified postprocedural states; Z79.1 Long term (current) use of non-steroidal anti-inflammatories (NSAID); Z79.899 Other long term (current) drug therapy
CPT/HCPCS: 36415; 80048; 82550; 83735; 85025

== ENCOUNTER 2019-07-01 20:47 | Emergency (ER) | payer MEDICAID ==
--- NOTE | 2019-07-01 21:45 | Emergency Department Report ---
ED General Adult HPI - General Chief complaint: Abdominal Pain Stated complaint: RIGHT SIDE ABDOMINAL PAIN Time Seen by Provider: 07/01/19 21:44 Source: EMS Mode of arrival: Stretcher Limitations: No Limitations - History of Present Illness Initial comments: 59 y.o. male with a history of alcohol abuse presents with complaint of abdominal pain. Patient states the pain is in his right lower quadrant and right upper quadrant. Patient denies any fever. Patient denies any hematochezia or hematemesis. - Related Data Previous Rx's Medication Instructions Recorded Last Taken Type chlordiazePOXIDE [Librium] 25 mg PO Q6H PRN #15 capsule 01/10/19 Unknown Rx Ibuprofen [Motrin 800 MG tab] 800 mg PO Q8HR PRN #20 tablet 01/25/19 Unknown Rx Folic Acid [Folvite] 1 mg PO QDAY #30 tablet 02/10/19 Unknown Rx Multivitamin Tab [Multiple Vitamin 1 each PO QDAY #30 tablet 02/10/19 Unknown Rx TAB (Theragran)] Aspirin 325 mg PO QDAY #30 tablet 02/13/19 Unknown Rx Multivitamin with Folic Acid [[facility] 400 mcg PO QDAY #30 tablet 02/13/19 Unknown Rx One Daily Essential Tablet] Thiamine [Vitamin B-1] 100 mg PO QDAY #30 tablet 02/13/19 Unknown Rx chlordiazePOXIDE [Librium] 50 mg PO Q1HR PRN #15 capsule 02/13/19 Unknown Rx Cyclobenzaprine [Flexeril] 10 mg PO TID PRN #14 tablet 05/17/19 Unknown Rx Ibuprofen [Motrin 800 MG tab] 800 mg PO Q8HR PRN #20 tablet 05/17/19 Unknown Rx Ondansetron [Zofran Odt] 4 mg PO Q8HR #20 tab.rapdis 07/02/19 Unknown Rx traMADoL [Ultram] 50 mg PO Q6HR PRN #20 tablet 07/02/19 Unknown Rx Allergies Allergy/AdvReac Type Severity Reaction Status Date / Time No Known Allergies Allergy Verified 01/24/19 22:37 ED Review of Systems ROS: Stated complaint: RIGHT SIDE ABDOMINAL PAIN Other details as noted in HPI Constitutional: denies: chills, fever Eyes: denies: eye pain, eye discharge, vision change ENT: denies: ear pain, throat pain Respiratory: denies: cough, shortness of breath, wheezing Cardiovascular: denies: chest pain, palpitations Endocrine: no symptoms reported Gastrointestinal: abdominal pain, nausea, vomiting Genitourinary: denies: urgency, dysuria Musculoskeletal: denies: back pain, joint swelling, arthralgia Skin: denies: rash, lesions Neurological: denies: headache, weakness, paresthesias Psychiatric: denies: anxiety, depression Hematological/Lymphatic: denies: easy bleeding, easy bruising ED Past Medical Hx - Past Medical History Hx Hypertension: Yes Hx CVA: Yes Hx Arthritis: Yes Additional medical history: Dysphagia - Surgical History Past Surgical History?: Yes Additional Surgical History: Feeding tube-removed - Social History Smoking Status: Current Every Day Smoker Substance Use Type: Alcohol - Medications Home Medications: Home Medications Medication Instructions Recorded Confirmed Last Taken Type chlordiazePOXIDE [Librium] 25 mg PO Q6H PRN #15 capsule 01/10/19 Unknown Rx Ibuprofen [Motrin 800 MG tab] 800 mg PO Q8HR PRN #20 tablet 01/25/19 Unknown Rx Folic Acid [Folvite] 1 mg PO QDAY #30 tablet 02/10/19 Unknown Rx Multivitamin Tab [Multiple Vitamin 1 each PO QDAY #30 tablet 02/10/19 Unknown Rx TAB (Theragran)] Aspirin 325 mg PO QDAY #30 tablet 02/13/19 Unknown Rx Multivitamin with Folic Acid [[facility] 400 mcg PO QDAY #30 tablet 02/13/19 Unknown Rx One Daily Essential Tablet] Thiamine [Vitamin B-1] 100 mg PO QDAY #30 tablet 02/13/19 Unknown Rx chlordiazePOXIDE [Librium] 50 mg PO Q1HR PRN #15 capsule 02/13/19 Unknown Rx Cyclobenzaprine [Flexeril] 10 mg PO TID PRN #14 tablet 05/17/19 Unknown Rx Ibuprofen [Motrin 800 MG tab] 800 mg PO Q8HR PRN #20 tablet 05/17/19 Unknown Rx Ondansetron [Zofran Odt] 4 mg PO Q8HR #20 tab.rapdis 07/02/19 Unknown Rx traMADoL [Ultram] 50 mg PO Q6HR PRN #20 tablet 07/02/19 Unknown Rx ED Physical Exam - General Limitations: No Limitations General appearance: alert, in no apparent distress - Head Head exam: Present: atraumatic, normocephalic - Eye Eye exam: Present: normal appearance - ENT ENT exam: Present: mucous membranes moist - Neck Neck exam: Present: normal inspection - Respiratory Respiratory exam: Present: normal lung sounds bilaterally. Absent: respiratory distress - Cardiovascular Cardiovascular Exam: Present: regular rate, normal rhythm. Absent: systolic murmur, diastolic murmur, rubs, gallop - GI/Abdominal GI/Abdominal exam: Present: soft, tenderness (Mild tenderness noted in the right upper quadrant), normal bowel sounds. Absent: guarding, rebound - Rectal Rectal exam: Present: deferred - Extremities Exam Extremities exam: Present: normal inspection - Back Exam Back exam: Present: normal inspection - Neurological Exam Neurological exam: Present: alert, oriented X3 - Psychiatric Psychiatric exam: Present: normal affect, normal mood - Skin Skin exam: Present: warm, dry, intact, normal color. Absent: rash ED Course Vital Signs 07/01/19 07/01/19 07/01/19 21:02 21:08 21:16 Temperature 98.0 F Pulse Rate 88 97 H 93 H Respiratory 18 19 Rate Blood Pressure 145/93 145/93 O2 Sat by Pulse 100 100 100 Oximetry 07/01/19 07/01/19 07/01/19 21:30 21:46 22:00 Temperature Pulse Rate 92 H 95 H 94 H Respiratory 16 17 20 Rate Blood Pressure 155/100 145/93 149/87 O2 Sat by Pulse 99 99 100 Oximetry 07/01/19 07/01/19 07/01/19 22:16 22:30 22:46 Temperature Pulse Rate 93 H 89 Respiratory 23 16 Rate Blood Pressure 155/100 145/85 145/85 O2 Sat by Pulse 100 100 99 Oximetry 07/01/19 07/01/19 07/01/19 23:00 23:16 23:30 Temperature Pulse Rate Respiratory Rate Blood Pressure 145/85 173/109 160/82 O2 Sat by Pulse 100 100 100 Oximetry 07/01/19 07/02/19 07/02/19 23:46 00:08 00:16 Temperature Pulse Rate 88 Respiratory 21 Rate Blood Pressure 160/82 160/82 160/82 O2 Sat by Pulse 99 100 98 Oximetry 07/02/19 00:30 Temperature Pulse Rate 88 Respiratory 18 Rate Blood Pressure 166/98 O2 Sat by Pulse 99 Oximetry ED Medical Decision Making - Lab Data Result diagrams: 07/01/19 21:58 07/01/19 21:58 - Medical Decision Making Patient CT shows a presence of cholelithiasis with no abnormal liver function studies. Patient be discharged and given general surgery follow-up. Patient given Ultram for as needed pain relief as well as Zofran for as needed nausea. - Differential Diagnosis Cholelithiasis; pancreatitis; dehydration; anemia Critical care attestation.: If time is entered above; I have spent that time in minutes in the direct care of this critically ill patient, excluding procedure time. ED Disposition Clinical Impression: Alcohol abuse, Cholelithiasis Disposition: - TO HOME OR SELFCARE Is pt being admited?: No Does the pt Need Aspirin: No Condition: Stable Instructions: Cholelithiasis (ED) Prescriptions: traMADoL [Ultram] 50 mg PO Q6HR PRN #20 tablet PRN Reason: Pain Ondansetron [Zofran Odt] 4 mg PO Q8HR #20 tab.rapdis Time of Disposition: 01:04 Print Language: MALDIVIAN
[2019-07-01 22:18] LABS: Hematocrit 38.3 % (35.5-45.6); Hemoglobin 12.9 gm/dl (11.8-15.2); Mean Corpuscular HGB Conc 34 % (32-34); Mean Corpuscular Volume 94 fl (84-94); Platelet Count 253 K/mm3 (140-440); Red Blood Count 4.06 M/mm3 (3.65-5.03); Red Cell Distribution Width 14.7 % (13.2-15.2)
[2019-07-01 22:44] LABS: BUN/Creatinine Ratio 36; Blood Urea Nitrogen 25 mg/dL (9-20); Calcium 9.9 mg/dL (8.4-10.2); Hemolysis Index 109
[2019-07-01 22:49] LABS: Alanine Aminotransferase 26 units/L (7-56)
--- NOTE | 2019-07-02 00:27 | Cat Scan Report ---
CT ABDOMEN AND PELVIS WITHOUT CONTRAST INDICATION / CLINICAL INFORMATION: Pt complains of "Generalized" abdominal pain x 1 day. TECHNIQUE: Axial CT images were obtained through the abdomen and pelvis without IV contrast. All CT scans at [facility] location are performed using CT dose reduction for ALARA by means of automated exposure control. COMPARISON: 01/21/2019 FINDINGS: Lack intra-abdominal fat limits the diagnostic accuracy LOWER CHEST: No significant abnormality. LIVER: No significant abnormality. GALLBLADDER: A small punctate calcification present within the gallbladder BILE DUCTS: No significant abnormality. PANCREAS: No significant abnormality. SPLEEN: No significant abnormality. ADRENALS: No significant abnormality. RIGHT KIDNEY and URETER: No significant abnormality. LEFT KIDNEY and URETER: No significant abnormality. STOMACH and SMALL BOWEL: No significant abnormality. COLON: No significant abnormality. APPENDIX: Not identified PERITONEUM: No free fluid. No free air. No fluid collection. LYMPH NODES: No significant adenopathy. AORTA and ARTERIES: Calcified atherosclerotic plaque abdominal aorta and iliac arteries IVC and VEINS: No significant abnormality. URINARY BLADDER: No significant abnormality. REPRODUCTIVE ORGANS: No significant abnormality. ADDITIONAL FINDINGS: None. SKELETAL SYSTEM: Scoliosis of of the thoracic lumbar spine is noted.Facet degenerative changes lumbar spine IMPRESSION: 1. Possible cholelithiasis 2. Scoliosis thoracic lumbar spine Signer Name: Carroll Cabral MD Signed: 07/02/2019 12:22 AM Workstation Name: [id number]
[2019-07-02 00:45] VITALS: BP 166/98
== END 2019-07-02 01:15 | disposition home or self-care (01) ==
LOC: ED 20:47
DX: K80.80 Other cholelithiasis without obstruction (principal); F10.129 Alcohol abuse with intoxication, unspecified; I10 Essential (primary) hypertension; F17.200 Nicotine dependence, unspecified, uncomplicated; M19.90 Unspecified osteoarthritis, unspecified site; Z79.899 Other long term (current) drug therapy; Z86.73 Personal history of transient ischemic attack (TIA), and cerebral infarction without residual deficits
CPT/HCPCS: 36415; 74176; 80053; 83690; 85027

== ENCOUNTER 2019-07-09 22:53 | Emergency (ER) | payer MEDICAID ==
[2019-07-10 00:11] LABS: Basophils % (Auto) 0.4 % (0.0-1.8); Eosinophils # (Auto) 0.6 K/mm3 (0.0-0.4); Eosinophils % (Auto) 5.3 % (0.0-4.3); Hematocrit 39.6 % (35.5-45.6); Hemoglobin 12.9 gm/dl (11.8-15.2); Lymphocytes # (Auto) 1.8 K/mm3 (1.2-5.4); Lymphocytes % (Auto) 17.1 % (13.4-35.0); Mean Corpuscular HGB Conc 33 % (32-34); Mean Corpuscular Volume 96 fl (84-94); Monocytes # (Auto) 0.9 K/mm3 (0.0-0.8); Monocytes % (Auto) 8.7 % (0.0-7.3); Platelet Count 297 K/mm3 (140-440); Red Blood Count 4.13 M/mm3 (3.65-5.03); Red Cell Distribution Width 14.6 % (13.2-15.2)
[2019-07-10 00:35] LABS: Alanine Aminotransferase 17 units/L (7-56); Albumin 4.3 g/dL (3.9-5); BUN/Creatinine Ratio 29; Blood Urea Nitrogen 26 mg/dL (9-20); Calcium 10.8 mg/dL (8.4-10.2); Hemolysis Index 30
[2019-07-10] MEDS ORDERED: FAMOTIDINE 20 MG/2 ML INJ IV ONE (01:20)
[2019-07-10] MEDS ORDERED: KETOROLAC 30 MG/1 ML INJ IV ONE (01:20)
[2019-07-10] MEDS ORDERED: ONDANSETRON 4 MG/2 ML INJ IV ONE (01:20)
[2019-07-10] MEDS ORDERED: SODIUM CHLORIDE 0.9% 1000 ML 1,000 ML IV ONE (02:27)
--- NOTE | 2019-07-10 03:46 | Cat Scan Report ---
CT ABDOMEN AND PELVIS WITH CONTRAST INDICATION / CLINICAL INFORMATION: EPIGASTRIC PAIN WITH HX OF ALCOHOLISM Otherwise ASYMPTOMATIC!!! Omnipaque 300 / 100ml's was used for this exam.. TECHNIQUE: Axial CT images were obtained through the abdomen and pelvis after IV contrast. All CT scans at this location are performed using CT dose reduction for ALARA by means of automated exposure control. COMPARISON: CT dated 07/01/19 FINDINGS: LOWER CHEST: No significant abnormality. LIVER: No significant abnormality. GALLBLADDER: Tiny calcified gallstone is unchanged. No inflammation. BILE DUCTS: No significant abnormality. PANCREAS: No significant abnormality. SPLEEN: No significant abnormality. ADRENALS: No significant abnormality. RIGHT KIDNEY and URETER: No significant abnormality. LEFT KIDNEY and URETER: No significant abnormality. STOMACH and SMALL BOWEL: No significant abnormality. COLON: No significant abnormality. APPENDIX: No significant abnormality. PERITONEUM: No free fluid. No free air. No fluid collection. LYMPH NODES: No significant adenopathy. AORTA and ARTERIES: No significant abnormality. IVC and VEINS: No significant abnormality. URINARY BLADDER: No significant abnormality. REPRODUCTIVE ORGANS: No significant abnormality. ADDITIONAL FINDINGS: None. SKELETAL SYSTEM: Moderate right hip degenerative arthrosis is unchanged. No acute osseous abnormality . IMPRESSION: 1. No inflammatory process or bowel obstruction. 2. Tiny gallstone, unchanged. Signer Name: Sandra Anthony MD Signed: 07/10/2019 3:41 AM Workstation Name: [id number]
--- NOTE | 2019-07-10 04:10 | Emergency Department Report ---
ED Abdominal Pain HPI - General Chief Complaint: Abdominal Pain Stated Complaint: ABD PAIN Time Seen by Provider: 07/10/19 01:17 Source: patient Mode of arrival: Ambulatory Limitations: No Limitations - History of Present Illness Initial Comments: Patient is a 59-year-old F Turkmen male who is presenting with epigastric pain for the past 2 to 3 days. He denies vomiting but some nausea. He does admit to heavy alcohol use. Patient states he is never had pain to this magnitude. Pain is 8 out of 10 in severity and radiates to his back. He denies fevers cough cold congestion at this time. Patient also has a history of hypertension. Severity scale (0 -10): 6 - Related Data Previous Rx's Medication Instructions Recorded Last Taken Type chlordiazePOXIDE [Librium] 25 mg PO Q6H PRN #15 capsule 01/10/19 Unknown Rx Ibuprofen [Motrin 800 MG tab] 800 mg PO Q8HR PRN #20 tablet 01/25/19 Unknown Rx Folic Acid [Folvite] 1 mg PO QDAY #30 tablet 02/10/19 Unknown Rx Multivitamin Tab [Multiple Vitamin 1 each PO QDAY #30 tablet 02/10/19 Unknown Rx TAB (Theragran)] Aspirin 325 mg PO QDAY #30 tablet 02/13/19 Unknown Rx Multivitamin with Folic Acid [Cvs 400 mcg PO QDAY #30 tablet 02/13/19 Unknown Rx One Daily Essential Tablet] Thiamine [Vitamin B-1] 100 mg PO QDAY #30 tablet 02/13/19 Unknown Rx chlordiazePOXIDE [Librium] 50 mg PO Q1HR PRN #15 capsule 02/13/19 Unknown Rx Cyclobenzaprine [Flexeril] 10 mg PO TID PRN #14 tablet 05/17/19 Unknown Rx Ibuprofen [Motrin 800 MG tab] 800 mg PO Q8HR PRN #20 tablet 05/17/19 Unknown Rx Ondansetron [Zofran Odt] 4 mg PO Q8HR #20 tab.rapdis 07/02/19 Unknown Rx traMADoL [Ultram] 50 mg PO Q6HR PRN #20 tablet 07/02/19 Unknown Rx Ondansetron [Zofran Odt] 4 mg PO Q8HR #10 tab.rapdis 07/10/19 Unknown Rx Pantoprazole [Protonix] 40 mg PO QDAY #30 tablet 07/10/19 Unknown Rx Allergies Allergy/AdvReac Type Severity Reaction Status Date / Time No Known Allergies Allergy Verified 01/24/19 22:37 ED Review of Systems ROS: Stated complaint: ABD PAIN Other details as noted in HPI Comment: All other systems reviewed and negative ED Past Medical Hx - Past Medical History Previous Medical History?: Yes Hx Hypertension: Yes Hx CVA: Yes Hx Arthritis: Yes Additional medical history: Dysphagia - Surgical History Additional Surgical History: Feeding tube-removed - Social History Smoking Status: Current Every Day Smoker Substance Use Type: Alcohol - Medications Home Medications: Home Medications Medication Instructions Recorded Confirmed Last Taken Type chlordiazePOXIDE [Librium] 25 mg PO Q6H PRN #15 capsule 01/10/19 Unknown Rx Ibuprofen [Motrin 800 MG tab] 800 mg PO Q8HR PRN #20 tablet 01/25/19 Unknown Rx Folic Acid [Folvite] 1 mg PO QDAY #30 tablet 02/10/19 Unknown Rx Multivitamin Tab [Multiple Vitamin 1 each PO QDAY #30 tablet 02/10/19 Unknown Rx TAB (Theragran)] Aspirin 325 mg PO QDAY #30 tablet 02/13/19 Unknown Rx Multivitamin with Folic Acid [Cvs 400 mcg PO QDAY #30 tablet 02/13/19 Unknown Rx One Daily Essential Tablet] Thiamine [Vitamin B-1] 100 mg PO QDAY #30 tablet 02/13/19 Unknown Rx chlordiazePOXIDE [Librium] 50 mg PO Q1HR PRN #15 capsule 02/13/19 Unknown Rx Cyclobenzaprine [Flexeril] 10 mg PO TID PRN #14 tablet 05/17/19 Unknown Rx Ibuprofen [Motrin 800 MG tab] 800 mg PO Q8HR PRN #20 tablet 05/17/19 Unknown Rx Ondansetron [Zofran Odt] 4 mg PO Q8HR #20 tab.rapdis 07/02/19 Unknown Rx traMADoL [Ultram] 50 mg PO Q6HR PRN #20 tablet 07/02/19 Unknown Rx Ondansetron [Zofran Odt] 4 mg PO Q8HR #10 tab.rapdis 07/10/19 Unknown Rx Pantoprazole [Protonix] 40 mg PO QDAY #30 tablet 07/10/19 Unknown Rx ED Physical Exam - General Limitations: No Limitations General appearance: alert, in no apparent distress - Head Head exam: Present: atraumatic, normocephalic - Eye Eye exam: Present: normal appearance - ENT ENT exam: Present: mucous membranes moist - Neck Neck exam: Present: normal inspection - Respiratory Respiratory exam: Present: normal lung sounds bilaterally. Absent: respiratory distress, wheezes, rales, rhonchi - Cardiovascular Cardiovascular Exam: Present: regular rate, normal rhythm, normal heart sounds. Absent: systolic murmur, diastolic murmur, rubs, gallop - GI/Abdominal GI/Abdominal exam: Present: soft, tenderness (Generalized central), normal bowel sounds. Absent: distended, guarding, rebound, rigid - Rectal Rectal exam: Present: deferred - Extremities Exam Extremities exam: Present: normal inspection - Back Exam Back exam: Present: normal inspection - Neurological Exam Neurological exam: Present: alert, oriented X3 - Psychiatric Psychiatric exam: Present: normal affect, normal mood - Skin Skin exam: Present: warm, dry, intact, normal color. Absent: rash ED Medical Decision Making - Lab Data Result diagrams: 07/09/19 23:54 07/09/19 23:54 Lab Results 07/09/19 07/09/19 07/10/19 Range/Units 23:54 23:54 01:27 WBC 10.7 (4.5-11.0) K/mm3 RBC 4.13 (3.65-5.03) M/mm3 Hgb 12.9 (11.8-15.2) gm/dl Hct 39.6 (35.5-45.6) % MCV 96 H (84-94) fl MCH 31 (28-32) pg MCHC 33 (32-34) % RDW 14.6 (13.2-15.2) % Plt Count 297 (140-440) K/mm3 Lymph % (Auto) 17.1 (13.4-35.0) % [place] % (Auto) 8.7 H (0.0-7.3) % Eos % (Auto) 5.3 H (0.0-4.3) % Baso % (Auto) 0.4 (0.0-1.8) % Lymph # 1.8 (1.2-5.4) K/mm3 [place] # 0.9 H (0.0-0.8) K/mm3 Eos # 0.6 H (0.0-0.4) K/mm3 Baso # 0.0 (0.0-0.1) K/mm3 Seg Neutrophils % 68.5 (40.0-70.0) % Seg Neutrophils # 7.3 (1.8-7.7) K/mm3 Sodium 145 (137-145) mmol/L Potassium 4.2 (3.6-5.0) mmol/L Chloride 105.2 (98-107) mmol/L Carbon Dioxide 24 (22-30) mmol/L Anion Gap 20 mmol/L BUN 26 H (9-20) mg/dL Creatinine 0.9 (0.8-1.5) mg/dL Estimated GFR > 60 ml/min BUN/Creatinine Ratio 29 % Glucose 91 (75-100) mg/dL Calcium 10.8 H (8.4-10.2) mg/dL Total Bilirubin 0.30 (0.1-1.2) mg/dL AST 22 (5-40) units/L ALT 17 (7-56) units/L Alkaline Phosphatase 49 (35-129) units/L Total Protein 7.7 (6.3-8.2) g/dL Albumin 4.3 (3.9-5) g/dL Albumin/Globulin Ratio 1.3 % Lipase 25 (13-60) units/L - Radiology Data [facility] [address] [place] [address] Cat Scan Report Signed Patient: TOÑO ROSENBERG MR#: [id number] 10 : 1960 Acct:[id number] Age/Sex: 59 / M ADM Date: 07/09/19 Loc: ED Attending Dr: Ordering Physician: MEGAN EVLASCO MD Date of Service: 07/10/19 Procedure(s): CT abdomen pelvis w con Accession Number(s): [id number] cc: MEGAN VELASCO MD CT ABDOMEN AND PELVIS WITH CONTRAST INDICATION / CLINICAL INFORMATION: EPIGASTRIC PAIN WITH HX OF ALCOHOLISM Otherwise ASYMPTOMATIC!!! Omnipaque 300 / 100ml's was used for this exam.. TECHNIQUE: Axial CT images were obtained through the abdomen and pelvis after IV contrast. All CT scans at this location are performed using CT dose reduction for ALARA by means of automated exposure control. COMPARISON: CT dated 07/01/19 FINDINGS: LOWER CHEST: No significant abnormality. LIVER: No significant abnormality. GALLBLADDER: Tiny calcified gallstone is unchanged. No inflammation. BILE DUCTS: No significant abnormality. PANCREAS: No significant abnormality. SPLEEN: No significant abnormality. ADRENALS: No significant abnormality. RIGHT KIDNEY and URETER: No significant abnormality. LEFT KIDNEY and URETER: No significant abnormality. STOMACH and SMALL BOWEL: No significant abnormality. COLON: No significant abnormality. APPENDIX: No significant abnormality. PERITONEUM: No free fluid. No free air. No fluid collection. LYMPH NODES: No significant adenopathy. AORTA and ARTERIES: No significant abnormality. IVC and VEINS: No significant abnormality. URINARY BLADDER: No significant abnormality. REPRODUCTIVE ORGANS: No significant abnormality. ADDITIONAL FINDINGS: None. SKELETAL SYSTEM: Moderate right hip degenerative arthrosis is unchanged. No acute osseous abnormality. IMPRESSION: 1. No inflammatory process or bowel obstruction. 2. Tiny gallstone, unchanged. Signer Name: Sandra Anthony MD Signed: 07/10/2019 3:41 AM Workstation Name: [email or web address] - Medical Decision Making Patient's laboratory studies are unremarkable. CT shows no evidence of acute pancreatitis. Patient likely with alcoholic gastritis secondary to his heavy alcohol use. Patient be started on medication for symptomatic relief will be given GI follow-up and is been urged to slow his alcohol use. Critical care attestation.: If time is entered above; I have spent that time in minutes in the direct care of this critically ill patient, excluding procedure time. ED Disposition Clinical Impression: Alcoholic gastritis Qualifiers: Chronicity: acute Gastritis bleeding: presence of bleeding unspecified Qualified Code(s): K29.20 - Alcoholic gastritis without bleeding Abdominal pain Qualifiers: Abdominal location: generalized Qualified Code(s): R10.84 - Generalized abdominal pain Disposition: - TO HOME OR SELFCARE Is pt being admited?: No Does the pt Need Aspirin: No Condition: Stable Instructions: Gastritis (ED), Diet for Ulcers and Gastritis (ED) Referrals: [facility] [Provider Group] - 3-5 Days Time of Disposition: 04:13
[2019-07-10 06:56] VITALS: BP 120/78
== END 2019-07-10 05:00 | disposition home or self-care (01) ==
LOC: ED 22:53
DX: K29.20 Alcoholic gastritis without bleeding (principal); F17.200 Nicotine dependence, unspecified, uncomplicated; I10 Essential (primary) hypertension; M19.90 Unspecified osteoarthritis, unspecified site; Z86.73 Personal history of transient ischemic attack (TIA), and cerebral infarction without residual deficits
CPT/HCPCS: 36415; 74177; 80053; 83690; 85025; 96361; 96374; 96375; 99284; J1885; J2405; J7030; Q9967; 96366

== ENCOUNTER 2019-07-23 21:23 | Emergency (ER) | payer MEDICAID ==
[2019-07-24] MEDS ORDERED: ACETAMINOPHEN 500 MG TAB PO ONE (00:33)
[2019-07-24] MEDS ORDERED: IBUPROFEN 400 MG TAB PO ONE (00:33)
--- NOTE | 2019-07-24 01:18 | XRay Report ---
LEFT HIP 2 VIEWS 07/24/2019 INDICATION / CLINICAL INFORMATION: pain - left hip pain from a fall. COMPARISON: 05/17/2019 FINDINGS: No acute fracture or dislocation. There are bilateral degenerative changes in the hips, more pronounced on the right. Signer Name: Tomás Bertrand MD Signed: 07/24/2019 1:14 AM Workstation Name: [id number]
--- NOTE | 2019-07-24 01:34 | Emergency Department Report ---
ED Lower Extremity HPI - General Chief Complaint: Extremity Problem,Nontraumatic Stated Complaint: LEG PAIN Source: patient Mode of arrival: Ambulatory Limitations: No Limitations - History of Present Illness Initial Comments: Patient is a 59-year-old -[place]ian male with a history of chronic osteoarthritis who presented to the ED with acute onset persistent severe left h ip pain after he tripped and fell at home landing on the left hip about 1 month ago. Patient states that the pain has been progressively been getting worse especially in the last 2 days. Patient states that tonight he was unable to sleep because of severe pain. Patient denies low back pain, testicle pain, hematuria, dysuria, urinary frequency and urgency, urinary or bowel incontinence, saddle paresthesia, numbness and tingling or weakness of lower extremities bilaterally, low back pain, neck pain, dizziness, syncope, seizures, chest pain or shortness of breath. MD Complaint: hip injury (left), fall, other (left hip pain, s/p fall 1 month ago) -: Sudden, month(s) (1) Injury: Hip: Left (left hip pain after a fall 1 month ago) Type of Injury: blunt, other (tripped and fell down at home) Place: home Severity: moderate Severity scale (0 -10): 6 Improves With: nothing Worsens With: weight bearing, movement, palpation Context: fall Associated Symptoms: able to partially bear weight. denies: snap/pop sensation, swelling, numbness, tingling, unable to bear weight - Related Data Previous Rx's Medication Instructions Recorded Last Taken Type chlordiazePOXIDE [Librium] 25 mg PO Q6H PRN #15 capsule 01/10/19 Unknown Rx Ibuprofen [Motrin 800 MG tab] 800 mg PO Q8HR PRN #20 tablet 01/25/19 Unknown Rx Folic Acid [Folvite] 1 mg PO QDAY #30 tablet 02/10/19 Unknown Rx Multivitamin Tab [Multiple Vitamin 1 each PO QDAY #30 tablet 02/10/19 Unknown Rx TAB (Theragran)] Aspirin 325 mg PO QDAY #30 tablet 02/13/19 Unknown Rx Multivitamin with Folic Acid [Cvs 400 mcg PO QDAY #30 tablet 02/13/19 Unknown Rx One Daily Essential Tablet] Thiamine [Vitamin B-1] 100 mg PO QDAY #30 tablet 02/13/19 Unknown Rx chlordiazePOXIDE [Librium] 50 mg PO Q1HR PRN #15 capsule 02/13/19 Unknown Rx Cyclobenzaprine [Flexeril] 10 mg PO TID PRN #14 tablet 05/17/19 Unknown Rx Ibuprofen [Motrin 800 MG tab] 800 mg PO Q8HR PRN #20 tablet 05/17/19 Unknown Rx Ondansetron [Zofran Odt] 4 mg PO Q8HR #20 tab.rapdis 07/02/19 Unknown Rx Ondansetron [Zofran Odt] 4 mg PO Q8HR #10 tab.rapdis 07/10/19 Unknown Rx Pantoprazole [Protonix] 40 mg PO QDAY #30 tablet 07/10/19 Unknown Rx Naproxen 500 mg PO Q12H PRN #30 tablet 07/24/19 Unknown Rx traMADoL [Ultram 50 MG tab] 50 mg PO Q6HR PRN #12 tablet 07/24/19 Unknown Rx Allergies Allergy/AdvReac Type Severity Reaction Status Date / Time No Known Allergies Allergy Verified 01/24/19 22:37 ED Review of Systems ROS: Stated complaint: LEG PAIN Other details as noted in HPI Constitutional: denies: chills, fever Eyes: denies: eye pain, eye discharge, vision change ENT: denies: ear pain, throat pain Respiratory: denies: cough, shortness of breath, wheezing Cardiovascular: denies: chest pain, palpitations Endocrine: no symptoms reported Gastrointestinal: denies: abdominal pain, nausea, diarrhea Genitourinary: denies: urgency, dysuria Musculoskeletal: arthralgia (Left hip pain), myalgia. denies: back pain, joint swelling Skin: denies: rash, lesions Neurological: denies: headache, weakness, paresthesias Psychiatric: denies: anxiety, depression Hematological/Lymphatic: denies: easy bleeding, easy bruising ED Past Medical Hx - Past Medical History Hx Hypertension: Yes Hx CVA: Yes Hx Arthritis: Yes Additional medical history: Dysphagia - Surgical History Additional Surgical History: Feeding tube-removed - Social History Smoking Status: Current Every Day Smoker Substance Use Type: Alcohol - Medications Home Medications: Home Medications Medication Instructions Recorded Confirmed Last Taken Type chlordiazePOXIDE [Librium] 25 mg PO Q6H PRN #15 capsule 01/10/19 Unknown Rx Ibuprofen [Motrin 800 MG tab] 800 mg PO Q8HR PRN #20 tablet 01/25/19 Unknown Rx Folic Acid [Folvite] 1 mg PO QDAY #30 tablet 02/10/19 Unknown Rx Multivitamin Tab [Multiple Vitamin 1 each PO QDAY #30 tablet 02/10/19 Unknown Rx TAB (Theragran)] Aspirin 325 mg PO QDAY #30 tablet 02/13/19 Unknown Rx Multivitamin with Folic Acid [Cvs 400 mcg PO QDAY #30 tablet 02/13/19 Unknown Rx One Daily Essential Tablet] Thiamine [Vitamin B-1] 100 mg PO QDAY #30 tablet 02/13/19 Unknown Rx chlordiazePOXIDE [Librium] 50 mg PO Q1HR PRN #15 capsule 02/13/19 Unknown Rx Cyclobenzaprine [Flexeril] 10 mg PO TID PRN #14 tablet 05/17/19 Unknown Rx Ibuprofen [Motrin 800 MG tab] 800 mg PO Q8HR PRN #20 tablet 05/17/19 Unknown Rx Ondansetron [Zofran Odt] 4 mg PO Q8HR #20 tab.rapdis 07/02/19 Unknown Rx Ondansetron [Zofran Odt] 4 mg PO Q8HR #10 tab.rapdis 07/10/19 Unknown Rx Pantoprazole [Protonix] 40 mg PO QDAY #30 tablet 07/10/19 Unknown Rx Naproxen 500 mg PO Q12H PRN #30 tablet 07/24/19 Unknown Rx traMADoL [Ultram 50 MG tab] 50 mg PO Q6HR PRN #12 tablet 07/24/19 Unknown Rx ED Physical Exam - General Limitations: No Limitations General appearance: alert, in no apparent distress - Head Head exam: Present: atraumatic, normocephalic, normal inspection - Eye Eye exam: Present: normal appearance, PERRL, EOMI Pupils: Present: normal accommodation - ENT ENT exam: Present: normal exam, normal orophraynx, mucous membranes moist, TM's normal bilaterally, normal external ear exam - Neck Neck exam: Present: normal inspection, full ROM - Respiratory Respiratory exam: Present: normal lung sounds bilaterally. Absent: respiratory distress, wheezes, rales, chest wall tenderness, accessory muscle use, decreased breath sounds - Cardiovascular Cardiovascular Exam: Present: regular rate, normal rhythm, normal heart sounds. Absent: systolic murmur, diastolic murmur, rubs, gallop - GI/Abdominal GI/Abdominal exam: Present: soft, normal bowel sounds. Absent: tenderness, guarding, hyperactive bowel sounds - Extremities Exam Extremities exam: Present: normal inspection, tenderness (Palpable left hip tenderness with limited range of motion due to pain), normal capillary refill. Absent: full ROM (Limited range of motion due to pain of the left hip), pedal edema, joint swelling, calf tenderness - Back Exam Back exam: Present: normal inspection, full ROM. Absent: tenderness, CVA tenderness (R), CVA tenderness (L), muscle spasm, paraspinal tenderness - Neurological Exam Neurological exam: Present: alert, oriented X3, CN II-XII intact, normal gait, motor sensory deficit, reflexes normal - Psychiatric Psychiatric exam: Present: normal affect, normal mood - Skin Skin exam: Present: warm, dry, intact, normal color. Absent: rash ED Lower Extremity MDM - Radiology Data Radiology results: report reviewed, image reviewed Findings [facility] [address] [place] [address] XRay Report Signed Patient: TOÑO ROSENBERG MR#: [id number] 10 : 1960 Acct:[id number] Age/Sex: 59 / M ADM Date: 07/23/19 Loc: ED Attending Dr: Ordering Physician: YASH GILLIS Date of Service: 07/24/19 Procedure(s): XR hip 2-3V LT Accession Number(s): [id number] cc: YASH GILLIS Fluoro Time In Minutes: LEFT HIP 2 VIEWS 07/24/2019 INDICATION / CLINICAL INFORMATION: pain - left hip pain from a fall. COMPARISON: 05/17/2019 FINDINGS: No acute fracture or dislocation. There are bilateral degenerative changes in the hips, more pronounced on the right. Signer Name: Tomás Bertrand MD Signed: 07/24/2019 1:14 AM Workstation Name: [id number] Transcribed By: CUATE Dictated By: Tomás Bertrand MD Electronically Authenticated By: Tomás Bertrand MD Signed Date/Time: 07/24/19113 DD/ 1 TD/TT: - Medical Decision Making This is a 59-year-old male with a history of chronic osteoarthritis who presented to the ED with persistent severe left hip pain for the last 1 month after he tripped and fell down at home. In the ED, patient is alert and oriented x3 and is not in distress but appears to be in pain. Patient was treated for pain in the ED and left hip x-ray shows no acute fractures or subluxations. The x-ray also shows bilateral degenerative changes in the hips, more pronounced on the right. On reevaluation, patient's pain is well controlled with medications. Patient was discharged home on pain medications and advised to follow-up with his primary care physician in 3 to 5 days for reevaluation or return to the ED immediately if symptoms get worse. - Differential Diagnosis Hip fracture; Hip contusion; Hip sprain; DJD of hip Critical care attestation.: If time is entered above; I have spent that time in minutes in the direct care of this critically ill patient, excluding procedure time. ED Disposition Clinical Impression: Contusion of left hip and thigh Qualifiers: Encounter type: initial encounter Qualified Code(s): S70.02XA - Contusion of left hip, initial encounter; S70.12XA - Contusion of left thigh, initial encounter Degenerative joint disease (DJD) of hip Qualifiers: Osteoarthritis type: primary Laterality: bilateral Qualified Code(s): M16.0 - Bilateral primary osteoarthritis of hip Muscle strain of left hip Qualifiers: Encounter type: initial encounter Qualified Code(s): S76.012A - Strain of muscle, fascia and tendon of left hip, initial encounter Disposition: DC- TO HOME OR SELFCARE Is pt being admited?: No Does the pt Need Aspirin: No Condition: Stable Instructions: Muscle Strain (ED), Osteoarthritis (ED), Hip Sprain (ED) Additional Instructions: The x-ray of your left hip is unremarkable with no fracture or dislocation. There are however significant osteoarthritis of your bilateral hips. Therefore take medications as needed with food, drink plenty of fluids and follow-up with your primary care physician in 5 to 7 days for reevaluation or return to the ED immediately if symptoms get worse. Prescriptions: Naproxen 500 mg PO Q12H PRN #30 tablet PRN Reason: Pain , Severe (7-10) traMADoL [Ultram 50 MG tab] 50 mg PO Q6HR PRN #12 tablet PRN Reason: Pain Referrals: [facility] [Provider Group] - 3-5 Days Time of Disposition: 01:38 Print Language: CHINESE
[2019-07-24 02:18] VITALS: BP 156/86
== END 2019-07-24 02:20 | disposition home or self-care (01) ==
LOC: ED 21:23
DX: S76.012A Strain of muscle, fascia and tendon of left hip, initial encounter (principal); M16.0 Bilateral primary osteoarthritis of hip; F17.200 Nicotine dependence, unspecified, uncomplicated; Z98.890 Other specified postprocedural states; Z79.1 Long term (current) use of non-steroidal anti-inflammatories (NSAID); Z79.899 Other long term (current) drug therapy; W01.0XXA Fall on same level from slipping, tripping and stumbling without subsequent striking against object, initial encounter; Y93.89 Activity, other specified; Y92.009 Unspecified place in unspecified non-institutional (private) residence as the place of occurrence of the external cause; Y99.8 Other external cause status

== ENCOUNTER 2019-08-13 14:04 | Emergency (ER) | payer MEDICAID ==
[2019-08-13 14:13] VITALS: BP 116/78
--- NOTE | 2019-08-13 14:21 | Emergency Department Report ---
Chief Complaint: Medical Clearance Stated Complaint: COLD Time Seen by Provider: 08/13/19 14:18 - HPI History of Present Illness: pt is a 59 yo male who presents with cough that began last night states he has mucus production no fever no n/v/d no SOB no CP no sore throat no rhinorrhea no ear pain no allergies to meds - Exam Vital Signs: Vital Signs 08/13/19 08/13/19 14:12 14:18 Temperature 98.1 F Pulse Rate 111 H 88 Respiratory 16 Rate Blood Pressure 116/78 O2 Sat by Pulse 97 Oximetry MSE screening note: Focused history and physical exam performed. ED Disposition for MSE Condition: Stable
--- NOTE | 2019-08-13 15:04 | XRay Report ---
CHEST PA AND LATERAL VIEWS INDICATION: productive cough. COMPARISON: 02/13/2019 FINDINGS: Support devices: None. Heart: Within normal limits. Lungs/Pleura: No acute pulmonary or pleural findings. Scoliosis and healed right rib fractures are noted. IMPRESSION: 1. No acute findings. Signer Name: Elkin Ferro MD Signed: 08/13/2019 2:59 PM Workstation Name: [email or web address]
--- NOTE | 2019-08-13 15:09 | Emergency Department Report ---
- General Chief Complaint: Medical Clearance Stated Complaint: COLD Time Seen by Provider: 08/13/19 14:18 Source: patient Mode of arrival: Ambulatory Limitations: No Limitations - History of Present Illness Initial Comments: pt is a 59 yo male who presents with cough that began last night states he has mucus production, green mucus no fever no n/v/d no SOB no CP no sore throat no rhinorrhea no ear pain no allergies to meds pt is a current every day smoker he denies any travel or sick contacts no known contacts with COVID positive patient - Related Data Previous Rx's Medication Instructions Recorded Last Taken Type chlordiazePOXIDE [Librium] 25 mg PO Q6H PRN #15 capsule 01/10/19 Unknown Rx Ibuprofen [Motrin 800 MG tab] 800 mg PO Q8HR PRN #20 tablet 01/25/19 Unknown Rx Folic Acid [Folvite] 1 mg PO QDAY #30 tablet 02/10/19 Unknown Rx Multivitamin Tab [Multiple Vitamin 1 each PO QDAY #30 tablet 02/10/19 Unknown Rx TAB (Theragran)] Aspirin 325 mg PO QDAY #30 tablet 02/13/19 Unknown Rx Multivitamin with Folic Acid [[facility] 400 mcg PO QDAY #30 tablet 02/13/19 Unknown Rx One Daily Essential Tablet] Thiamine [Vitamin B-1] 100 mg PO QDAY #30 tablet 02/13/19 Unknown Rx chlordiazePOXIDE [Librium] 50 mg PO Q1HR PRN #15 capsule 02/13/19 Unknown Rx Cyclobenzaprine [Flexeril] 10 mg PO TID PRN #14 tablet 05/17/19 Unknown Rx Ibuprofen [Motrin 800 MG tab] 800 mg PO Q8HR PRN #20 tablet 05/17/19 Unknown Rx Ondansetron [Zofran Odt] 4 mg PO Q8HR #20 tab.rapdis 07/02/19 Unknown Rx Ondansetron [Zofran Odt] 4 mg PO Q8HR #10 tab.rapdis 07/10/19 Unknown Rx Pantoprazole [Protonix] 40 mg PO QDAY #30 tablet 07/10/19 Unknown Rx Naproxen 500 mg PO Q12H PRN #30 tablet 07/24/19 Unknown Rx traMADoL [Ultram 50 MG tab] 50 mg PO Q6HR PRN #12 tablet 04/09/20 Unknown Rx Azithromycin [Zithromax TAB] 250 mg PO QDAY 5 Days #6 tablet 08/13/19 Unknown Rx guaiFENesin ER [Mucinex ER] 600 mg PO Q12H #14 tablet.er 08/13/19 Unknown Rx predniSONE [Deltasone] 40 mg PO QDAY 5 Days #10 tablet 08/13/19 Unknown Rx Allergies Allergy/AdvReac Type Severity Reaction Status Date / Time No Known Allergies Allergy Verified 01/24/19 22:37 ED Review of Systems ROS: Stated complaint: COLD Other details as noted in HPI Comment: All other systems reviewed and negative ED Past Medical Hx - Past Medical History Previous Medical History?: Yes Hx Hypertension: Yes Hx CVA: Yes Hx Arthritis: Yes Additional medical history: Dysphagia - Surgical History Past Surgical History?: Yes Additional Surgical History: Feeding tube-removed - Social History Smoking Status: Current Every Day Smoker Substance Use Type: Alcohol - Medications Home Medications: Home Medications Medication Instructions Recorded Confirmed Last Taken Type chlordiazePOXIDE [Librium] 25 mg PO Q6H PRN #15 capsule 01/10/19 Unknown Rx Ibuprofen [Motrin 800 MG tab] 800 mg PO Q8HR PRN #20 tablet 01/25/19 Unknown Rx Folic Acid [Folvite] 1 mg PO QDAY #30 tablet 02/10/19 Unknown Rx Multivitamin Tab [Multiple Vitamin 1 each PO QDAY #30 tablet 02/10/19 Unknown Rx TAB (Theragran)] Aspirin 325 mg PO QDAY #30 tablet 02/13/19 Unknown Rx Multivitamin with Folic Acid [[facility] 400 mcg PO QDAY #30 tablet 02/13/19 Unknown Rx One Daily Essential Tablet] Thiamine [Vitamin B-1] 100 mg PO QDAY #30 tablet 02/13/19 Unknown Rx chlordiazePOXIDE [Librium] 50 mg PO Q1HR PRN #15 capsule 02/13/19 Unknown Rx Cyclobenzaprine [Flexeril] 10 mg PO TID PRN #14 tablet 05/17/19 Unknown Rx Ibuprofen [Motrin 800 MG tab] 800 mg PO Q8HR PRN #20 tablet 05/17/19 Unknown Rx Ondansetron [Zofran Odt] 4 mg PO Q8HR #20 tab.rapdis 07/02/19 Unknown Rx Ondansetron [Zofran Odt] 4 mg PO Q8HR #10 tab.rapdis 07/10/19 Unknown Rx Pantoprazole [Protonix] 40 mg PO QDAY #30 tablet 07/10/19 Unknown Rx Naproxen 500 mg PO Q12H PRN #30 tablet 07/24/19 Unknown Rx traMADoL [Ultram 50 MG tab] 50 mg PO Q6HR PRN #12 tablet 07/24/19 Unknown Rx Azithromycin [Zithromax TAB] 250 mg PO QDAY 5 Days #6 tablet 08/13/19 Unknown Rx guaiFENesin ER [Mucinex ER] 600 mg PO Q12H #14 tablet.er 08/13/19 Unknown Rx predniSONE [Deltasone] 40 mg PO QDAY 5 Days #10 tablet 08/13/19 Unknown Rx ED Physical Exam - General Limitations: No Limitations General appearance: alert, in no apparent distress - Head Head exam: Present: atraumatic, normocephalic - Eye Eye exam: Present: normal appearance - ENT ENT exam: Present: mucous membranes moist - Respiratory Respiratory exam: Present: rhonchi (left sided). Absent: respiratory distress, wheezes, rales, stridor, chest wall tenderness, accessory muscle use, decreased breath sounds, prolonged expiratory - Cardiovascular Cardiovascular Exam: Present: normal rhythm, tachycardia, normal heart sounds. Absent: systolic murmur, diastolic murmur, rubs, gallop - Neurological Exam Neurological exam: Present: alert, oriented X3 - Psychiatric Psychiatric exam: Present: normal affect, normal mood - Skin Skin exam: Present: warm, dry, intact ED Course Vital Signs 08/13/19 08/13/19 08/13/19 14:12 14:18 15:25 Temperature 98.1 F Pulse Rate 111 H 88 82 Respiratory 16 16 Rate Blood Pressure 116/78 O2 Sat by Pulse 97 98 Oximetry ED Medical Decision Making - Radiology Data Radiology results: report reviewed CHEST PA AND LATERAL VIEWS INDICATION: productive cough. COMPARISON: 02/13/2019 FINDINGS: Support devices: None. Heart: Within normal limits. Lungs/Pleura: No acute pulmonary or pleural findings. Scoliosis and healed right rib fractures are noted. IMPRESSION: 1. No acute findings. Signer Name: Elkin Ferro MD Signed: 08/13/2019 2:59 PM Workstation Name: [id number] Transcribed By: TOÑO Dictated By: Elkin Ferro MD Electronically Authenticated By: Elkin Ferro MD Signed Date/Time: 08/13/191458 DD/ 58 TD/TT: - Medical Decision Making pt is a 59 yo male who presents with cough that began last night states he has mucus production, green mucus no fever no n/v/d no SOB no CP no sore throat no rhinorrhea no ear pain no allergies to meds pt is a current every day smoker he denies any travel or sick contacts no known contacts with COVID positive patient Initial vitals with tachycardia which improved to normal upon repeat. Patient is afebrile, no hypoxia. On exam patient has rhonchi present on the left side, no rales, no wheezing, no respiratory distress, good air movement bilaterally. Chest x-ray with no acute process. Given exam findings, patient's history of daily smoking, change in his mucus production, will treat patient for acute bronchitis with antibiotics and steroids. Patient given prescription for prednisone, Mucinex, azithromycin. Advised patient Please take medication as prescribed. Please stop smoking. Follow-up with your primary care doctor. Return to emergency room for any new or worsening symptoms including but not limited to high fever, chest pain, shortness of breath, difficulty breathing, etc. - Differential Diagnosis URI, PNA, acute bronchitis, COPD, allergies, GERD, viral syndrome Critical care attestation.: If time is entered above; I have spent that time in minutes in the direct care of this critically ill patient, excluding procedure time. ED Disposition Clinical Impression: Tobacco abuse Acute bronchitis Qualifiers: Bronchitis organism: unspecified organism Qualified Code(s): J20.9 - Acute bronchitis, unspecified Disposition: DC-01 TO HOME OR SELFCARE Is pt being admited?: No Does the pt Need Aspirin: No Condition: Stable Instructions: How to Stop Smoking (ED), Acute Bronchitis (ED) Additional Instructions: Please take medication as prescribed. Please stop smoking. Follow-up with your primary care doctor. Return to emergency room for any new or worsening symptoms including but not limited to high fever, chest pain, shortness of breath, difficulty breathing, etc. Prescriptions: predniSONE [Deltasone] 40 mg PO QDAY 5 Days #10 tablet guaiFENesin ER [Mucinex ER] 600 mg PO Q12H #14 tablet.er Azithromycin [Zithromax TAB] 250 mg PO QDAY 5 Days #6 tablet Referrals: CARBUCCIA,JAEL, MD [Staff Physician] - 3-5 Days [facility] [Provider Group] - 3-5 Days [facility] [Outside] - 3-5 Days [facility] [Outside] - 3-5 Days Time of Disposition: 15:07 Print Language: SLOVAK
== END 2019-08-13 15:32 | disposition home or self-care (01) ==
LOC: ED 14:04
DX: J02.9 Acute pharyngitis, unspecified (principal); I10 Essential (primary) hypertension; M13.88 Other specified arthritis, other site; I25.2 Old myocardial infarction; Z79.899 Other long term (current) drug therapy
CPT/HCPCS: 71046

== ENCOUNTER 2019-08-21 14:36 | Emergency (ER) | payer MEDICAID ==
--- NOTE | 2019-08-21 17:52 | Emergency Department Report ---
ED Alcohol HPI - General Chief Complaint: Alcohol Stated Complaint: ETOH Time Seen by Provider: 08/21/19 14:54 Source: patient, EMS Mode of arrival: Stretcher Limitations: No Limitations - History of Present Illness Initial Comments: Mr. Tamayo is a 59-year-old male with history of alcohol dependence who presents to the emergency department. Police were called for public intoxication. He was partially exposed. He had a decision to be transported to the emergency department or placed in police custody. He decided to be transported to the emergency department. He does not have any physical complaints at this time. MD Complaint: alcohol intoxication Chronic Alcohol Use: Yes Previous Visits for Alcohol Intoxication?: Yes Recent Trauma: No Associated Symptoms: denies other symptoms - Related Data Previous Rx's Medication Instructions Recorded Last Taken Type chlordiazePOXIDE [Librium] 25 mg PO Q6H PRN #15 capsule 01/10/19 Unknown Rx Ibuprofen [Motrin 800 MG tab] 800 mg PO Q8HR PRN #20 tablet 01/25/19 Unknown Rx Folic Acid [Folvite] 1 mg PO QDAY #30 tablet 02/10/19 Unknown Rx Multivitamin Tab [Multiple Vitamin 1 each PO QDAY #30 tablet 02/10/19 Unknown Rx TAB (Theragran)] Aspirin 325 mg PO QDAY #30 tablet 02/13/19 Unknown Rx Multivitamin with Folic Acid [[facility] 400 mcg PO QDAY #30 tablet 02/13/19 Unknown Rx One Daily Essential Tablet] Thiamine [Vitamin B-1] 100 mg PO QDAY #30 tablet 02/13/19 Unknown Rx chlordiazePOXIDE [Librium] 50 mg PO Q1HR PRN #15 capsule 02/13/19 Unknown Rx Cyclobenzaprine [Flexeril] 10 mg PO TID PRN #14 tablet 05/17/19 Unknown Rx Ibuprofen [Motrin 800 MG tab] 800 mg PO Q8HR PRN #20 tablet 05/17/19 Unknown Rx Ondansetron [Zofran Odt] 4 mg PO Q8HR #20 tab.rapdis 07/02/19 Unknown Rx Ondansetron [Zofran Odt] 4 mg PO Q8HR #10 tab.rapdis 07/10/19 Unknown Rx Pantoprazole [Protonix] 40 mg PO QDAY #30 tablet 07/10/19 Unknown Rx Naproxen 500 mg PO Q12H PRN #30 tablet 07/24/19 Unknown Rx traMADoL [Ultram 50 MG tab] 50 mg PO Q6HR PRN #12 tablet 07/24/19 Unknown Rx Azithromycin [Zithromax TAB] 250 mg PO QDAY 5 Days #6 tablet 08/13/19 Unknown Rx guaiFENesin ER [Mucinex ER] 600 mg PO Q12H #14 tablet.er 08/13/19 Unknown Rx predniSONE [Deltasone] 40 mg PO QDAY 5 Days #10 tablet 08/13/19 Unknown Rx Allergies Allergy/AdvReac Type Severity Reaction Status Date / Time No Known Allergies Allergy Verified 01/24/19 22:37 ED Review of Systems ROS: Stated complaint: ETOH Other details as noted in HPI Comment: All other systems reviewed and negative Constitutional: denies: fever, malaise Respiratory: denies: cough Cardiovascular: denies: chest pain ED Past Medical Hx - Past Medical History Previous Medical History?: Yes Hx Hypertension: Yes Hx CVA: Yes Hx Arthritis: Yes Additional medical history: Dysphagia - Surgical History Additional Surgical History: Feeding tube-removed - Social History Smoking Status: Current Every Day Smoker Substance Use Type: Alcohol - Medications Home Medications: Home Medications Medication Instructions Recorded Confirmed Last Taken Type chlordiazePOXIDE [Librium] 25 mg PO Q6H PRN #15 capsule 01/10/19 Unknown Rx Ibuprofen [Motrin 800 MG tab] 800 mg PO Q8HR PRN #20 tablet 01/25/19 Unknown Rx Folic Acid [Folvite] 1 mg PO QDAY #30 tablet 02/10/19 Unknown Rx Multivitamin Tab [Multiple Vitamin 1 each PO QDAY #30 tablet 02/10/19 Unknown Rx TAB (Theragran)] Aspirin 325 mg PO QDAY #30 tablet 02/13/19 Unknown Rx Multivitamin with Folic Acid [[facility] 400 mcg PO QDAY #30 tablet 02/13/19 Unknown Rx One Daily Essential Tablet] Thiamine [Vitamin B-1] 100 mg PO QDAY #30 tablet 02/13/19 Unknown Rx chlordiazePOXIDE [Librium] 50 mg PO Q1HR PRN #15 capsule 02/13/19 Unknown Rx Cyclobenzaprine [Flexeril] 10 mg PO TID PRN #14 tablet 05/17/19 Unknown Rx Ibuprofen [Motrin 800 MG tab] 800 mg PO Q8HR PRN #20 tablet 05/17/19 Unknown Rx Ondansetron [Zofran Odt] 4 mg PO Q8HR #20 tab.rapdis 07/02/19 Unknown Rx Ondansetron [Zofran Odt] 4 mg PO Q8HR #10 tab.rapdis 07/10/19 Unknown Rx Pantoprazole [Protonix] 40 mg PO QDAY #30 tablet 07/10/19 Unknown Rx Naproxen 500 mg PO Q12H PRN #30 tablet 07/24/19 Unknown Rx traMADoL [Ultram 50 MG tab] 50 mg PO Q6HR PRN #12 tablet 07/24/19 Unknown Rx Azithromycin [Zithromax TAB] 250 mg PO QDAY 5 Days #6 tablet 08/13/19 Unknown Rx guaiFENesin ER [Mucinex ER] 600 mg PO Q12H #14 tablet.er 08/13/19 Unknown Rx predniSONE [Deltasone] 40 mg PO QDAY 5 Days #10 tablet 08/13/19 Unknown Rx ED Physical Exam - General Limitations: No Limitations General appearance: alert, appears intoxicated, other (Smells of urine, dirty clothes, disheveled clothing) - Head Head exam: Present: atraumatic, normocephalic - Eye Eye exam: Present: conjunctival injection - ENT ENT exam: Present: mucous membranes moist - Neck Neck exam: Present: normal inspection, full ROM - Respiratory Respiratory exam: Present: normal lung sounds bilaterally. Absent: respiratory distress, wheezes, rales, rhonchi - Cardiovascular Cardiovascular Exam: Present: regular rate, normal rhythm, normal heart sounds. Absent: systolic murmur, diastolic murmur, rubs, gallop - GI/Abdominal GI/Abdominal exam: Present: soft, normal bowel sounds. Absent: distended, tenderness, guarding, rebound - Extremities Exam Extremities exam: Present: normal inspection - Neurological Exam Neurological exam: Present: alert, oriented X3 - Psychiatric Psychiatric exam: Present: normal affect, normal mood - Skin Skin exam: Present: warm, dry, intact, normal color. Absent: rash ED Course Vital Signs 08/21/19 14:54 Temperature 98.7 F Pulse Rate 89 Respiratory 15 Rate Blood Pressure 136/75 [Left] O2 Sat by Pulse 99 Oximetry ED Medical Decision Making - Medical Decision Making Mr. Tamayo presents with acute alcohol intoxication. No evidence of trauma. No physical concerns. Will be discharged home once sober. Critical care attestation.: If time is entered above; I have spent that time in minutes in the direct care of this critically ill patient, excluding procedure time. ED Disposition Clinical Impression: Acute alcohol intoxication Disposition: DC-01 TO HOME OR SELFCARE Is pt being admited?: No Does the pt Need Aspirin: No Condition: Stable Referrals: JAEL MESA MD [Staff Physician] - 3-5 Days
[2019-08-21 18:24] VITALS: BP 150/89
== END 2019-08-21 18:41 | disposition home or self-care (01) ==
LOC: ED 14:36
DX: F10.229 Alcohol dependence with intoxication, unspecified (principal); I10 Essential (primary) hypertension; F17.200 Nicotine dependence, unspecified, uncomplicated; M19.90 Unspecified osteoarthritis, unspecified site; Z86.73 Personal history of transient ischemic attack (TIA), and cerebral infarction without residual deficits; Z79.899 Other long term (current) drug therapy
CPT/HCPCS: 36415; 80320; G0480

== ENCOUNTER 2019-08-23 17:52 | Emergency (ER) | payer MEDICAID ==
[2019-08-23] MEDS ORDERED: HYDROcodone/ACETAMINOPHEN 5-325 MG TAB PO ONE (19:34)
[2019-08-23] MEDS ORDERED: predniSONE 20 MG TAB PO ONE (19:34)
[2019-08-23] MEDS ORDERED: ACETAMINOPHEN 500 MG TAB PO ONE (19:35)
[2019-08-23] MEDS ORDERED: IBUPROFEN 400 MG TAB PO ONE (19:35)
--- NOTE | 2019-08-23 19:48 | Emergency Department Report ---
ED Fall HPI - General Chief Complaint: Pain General Stated Complaint: LFT SIDE HIP PAIN Source: patient Mode of arrival: Ambulatory - History of Present Illness Initial Comments: Patient is a 59-year-old -Malaysian male with a history of chronic alcohol abuse, hypertension and chronic osteoarthritis who presents to the ED with complaint of acute onset persistent severe left hip pain after he slipped and fell down while walking to the store 2 days ago. Patient states that at the time he was drunk and did not feel any pain. Patient states that the pain is worse with any active range of motion of left leg or ambulation. Patient states that in the last 24 hours he has hardly slept because of severe left hip pain. Patient denies head or neck injuries, loss of consciousness, syncope, dizziness, seizures, nausea and, vomiting, diarrhea, numbness and tingling or weakness of lower extremities bilaterally, low back pain, chest pain, shortness of breath, change in vision, or neck pain and headache. MD Complaint: fall, other (left hip pain) -: Sudden, days(s) (2) Fall From: standing, other (slipped and fell down when walking to the store, was drunk) When Fall Occurred: # days [employer] (2) Fall Witnessed: yes, by bystander Place Fall Occurred: street Loss of Consciousness: none Prolonged Down Time?: no Symptoms Prior to Fall: other (Alcohol intoxication) Location: pelvis (left hip) Location - Extremities: Left: Thigh (Left hip pain) Severity: severe Severity scale (0 -10): 8 Quality: sharp, aching Context: tripped/slipped Associated Symptoms: denies. denies: headache, neck pain, numbness, weakness, chest paint, shortness of breath, abdominal pain, hematuria, unable to walk, lightheaded, vertigo, confusion - Related Data Previous Rx's Medication Instructions Recorded Last Taken Type chlordiazePOXIDE [Librium] 25 mg PO Q6H PRN #15 capsule 01/10/19 Unknown Rx Ibuprofen [Motrin 800 MG tab] 800 mg PO Q8HR PRN #20 tablet 01/25/19 Unknown Rx Folic Acid [Folvite] 1 mg PO QDAY #30 tablet 02/10/19 Unknown Rx Multivitamin Tab [Multiple Vitamin 1 each PO QDAY #30 tablet 02/10/19 Unknown Rx TAB (Theragran)] Aspirin 325 mg PO QDAY #30 tablet 02/13/19 Unknown Rx Multivitamin with Folic Acid [Cvs 400 mcg PO QDAY #30 tablet 02/13/19 Unknown Rx One Daily Essential Tablet] Thiamine [Vitamin B-1] 100 mg PO QDAY #30 tablet 02/13/19 Unknown Rx chlordiazePOXIDE [Librium] 50 mg PO Q1HR PRN #15 capsule 02/13/19 Unknown Rx Cyclobenzaprine [Flexeril] 10 mg PO TID PRN #14 tablet 05/17/19 Unknown Rx Ibuprofen [Motrin 800 MG tab] 800 mg PO Q8HR PRN #20 tablet 05/17/19 Unknown Rx Ondansetron [Zofran Odt] 4 mg PO Q8HR #20 tab.rapdis 07/02/19 Unknown Rx Ondansetron [Zofran Odt] 4 mg PO Q8HR #10 tab.rapdis 07/10/19 Unknown Rx Pantoprazole [Protonix] 40 mg PO QDAY #30 tablet 07/10/19 Unknown Rx traMADoL [Ultram 50 MG tab] 50 mg PO Q6HR PRN #12 tablet 07/24/19 Unknown Rx Azithromycin [Zithromax TAB] 250 mg PO QDAY 5 Days #6 tablet 08/13/19 Unknown Rx guaiFENesin ER [Mucinex ER] 600 mg PO Q12H #14 tablet.er 08/13/19 Unknown Rx predniSONE [Deltasone] 40 mg PO QDAY 5 Days #10 tablet 08/13/19 Unknown Rx Naproxen 500 mg PO Q12H PRN #30 tablet 08/23/19 Unknown Rx Allergies Allergy/AdvReac Type Severity Reaction Status Date / Time No Known Allergies Allergy Verified 01/24/19 22:37 ED Review of Systems ROS: Stated complaint: LFT SIDE HIP PAIN Other details as noted in HPI Constitutional: denies: chills, fever Eyes: denies: eye pain, eye discharge, vision change ENT: denies: ear pain, throat pain Respiratory: denies: cough, shortness of breath, wheezing Cardiovascular: denies: chest pain, palpitations Endocrine: no symptoms reported Gastrointestinal: denies: abdominal pain, nausea, diarrhea Genitourinary: denies: urgency, dysuria Musculoskeletal: arthralgia (left hip pain). denies: back pain, joint swelling Skin: denies: rash, lesions Neurological: denies: headache, weakness, paresthesias Psychiatric: denies: anxiety, depression Hematological/Lymphatic: denies: easy bleeding, easy bruising ED Past Medical Hx - Past Medical History Previous Medical History?: Yes Hx Hypertension: Yes Hx CVA: Yes Hx Arthritis: Yes Additional medical history: Dysphagia - Surgical History Past Surgical History?: Yes Additional Surgical History: Feeding tube-removed - Social History Smoking Status: Current Every Day Smoker Substance Use Type: Alcohol - Medications Home Medications: Home Medications Medication Instructions Recorded Confirmed Last Taken Type chlordiazePOXIDE [Librium] 25 mg PO Q6H PRN #15 capsule 01/10/19 Unknown Rx Ibuprofen [Motrin 800 MG tab] 800 mg PO Q8HR PRN #20 tablet 01/25/19 Unknown Rx Folic Acid [Folvite] 1 mg PO QDAY #30 tablet 02/10/19 Unknown Rx Multivitamin Tab [Multiple Vitamin 1 each PO QDAY #30 tablet 02/10/19 Unknown Rx TAB (Theragran)] Aspirin 325 mg PO QDAY #30 tablet 02/13/19 Unknown Rx Multivitamin with Folic Acid [Cvs 400 mcg PO QDAY #30 tablet 02/13/19 Unknown Rx One Daily Essential Tablet] Thiamine [Vitamin B-1] 100 mg PO QDAY #30 tablet 02/13/19 Unknown Rx chlordiazePOXIDE [Librium] 50 mg PO Q1HR PRN #15 capsule 02/13/19 Unknown Rx Cyclobenzaprine [Flexeril] 10 mg PO TID PRN #14 tablet 05/17/19 Unknown Rx Ibuprofen [Motrin 800 MG tab] 800 mg PO Q8HR PRN #20 tablet 05/17/19 Unknown Rx Ondansetron [Zofran Odt] 4 mg PO Q8HR #20 tab.rapdis 07/02/19 Unknown Rx Ondansetron [Zofran Odt] 4 mg PO Q8HR #10 tab.rapdis 07/10/19 Unknown Rx Pantoprazole [Protonix] 40 mg PO QDAY #30 tablet 07/10/19 Unknown Rx traMADoL [Ultram 50 MG tab] 50 mg PO Q6HR PRN #12 tablet 07/24/19 Unknown Rx Azithromycin [Zithromax TAB] 250 mg PO QDAY 5 Days #6 tablet 08/13/19 Unknown Rx guaiFENesin ER [Mucinex ER] 600 mg PO Q12H #14 tablet.er 08/13/19 Unknown Rx predniSONE [Deltasone] 40 mg PO QDAY 5 Days #10 tablet 08/13/19 Unknown Rx Naproxen 500 mg PO Q12H PRN #30 tablet 08/23/19 Unknown Rx ED Physical Exam - General Limitations: No Limitations General appearance: alert, in no apparent distress - Head Head exam: Present: atraumatic, normocephalic, normal inspection - Eye Eye exam: Present: normal appearance, PERRL, EOMI Pupils: Present: normal accommodation - ENT ENT exam: Present: normal exam, normal orophraynx, mucous membranes moist, TM's normal bilaterally, normal external ear exam - Neck Neck exam: Present: normal inspection, full ROM. Absent: tenderness, meningismus, lymphadenopathy, thyromegaly - Respiratory Respiratory exam: Present: normal lung sounds bilaterally. Absent: respiratory distress, wheezes, rales, rhonchi, stridor, chest wall tenderness, accessory muscle use, decreased breath sounds - Cardiovascular Cardiovascular Exam: Present: regular rate, normal rhythm, normal heart sounds. Absent: systolic murmur, diastolic murmur, rubs, gallop - GI/Abdominal GI/Abdominal exam: Present: soft, normal bowel sounds. Absent: tenderness, guarding, hyperactive bowel sounds - Extremities Exam Extremities exam: Present: normal inspection, full ROM, tenderness (Palpable left hip tenderness), normal capillary refill. Absent: pedal edema, joint swelling, calf tenderness - Back Exam Back exam: Present: normal inspection, full ROM. Absent: tenderness, CVA tenderness (R), CVA tenderness (L), muscle spasm, paraspinal tenderness, vertebral tenderness - Neurological Exam Neurological exam: Present: alert, oriented X3, CN II-XII intact, normal gait, reflexes normal - Psychiatric Psychiatric exam: Present: normal affect, normal mood - Skin Skin exam: Present: warm, dry, intact, normal color. Absent: rash ED Course Vital Signs 08/23/19 08/23/19 18:00 20:08 Temperature 98.2 F Pulse Rate 86 Respiratory 18 18 Rate Blood Pressure 162/87 [Right] O2 Sat by Pulse 98 Oximetry ED Medical Decision Making - Radiology Data Radiology results: report reviewed, image reviewed Findings [facility] [address] [place] [address] XRay Report Signed Patient: TOÑO ROSENBERG MR#: [id number] 10 : 1960 Acct:[id number] Age/Sex: 59 / M ADM Date: 08/23/19 Loc: ED Attending Dr: Ordering Physician: YASH GILLIS Date of Service: 08/23/19 Procedure(s): XR hip 2-3V LT Accession Number(s): [id number] cc: YASH GILLIS Fluoro Time In Minutes: LEFT HIP 2 VIEW(S) INDICATION / CLINICAL INFORMATION: pain - fall COMPARISON: Radiograph dated 07/23/28 05/17/19 FINDINGS: BONES / JOINT(S): No acute fracture or subluxation. Mild left hip osteoarthrosis is unchanged. Advanced right hip osteoarthrosis is noted and unchanged. SOFT TISSUES: No significant abnormality. ADDITIONAL FINDINGS: None. Signer Name: Sandra Anthony MD Signed: 08/23/2019 8:21 PM Workstation Name: [id number] Transcribed By: DT Dictated By: Vinnie Anthony MD Electronically Authenticated By: Vinnie Anthony MD Signed Date/Time: 08/23/192020 DD/ 16 TD/TT: - Medical Decision Making This is a 59-year-old -Malaysian male with a history of chronic alcohol abuse, hypertension and chronic osteoarthritis who presents to the ED with complaint of acute onset persistent severe left hip pain after he slipped and fell down while walking to the store 2 days ago. Patient states that at the time he was drunk and did not feel any pain. Patient states that the pain is worse with any active range of motion of left leg or ambulation. Patient states that in the last 24 hours he has hardly slept because of severe left hip pain. In the ED, patient is alert and oriented x3 and is not in distress. Patient was treated for pain in the ED. The left hip x-ray shows no acute fracture or subluxation. It however shows mild left hip osteoarthrosis is unchanged, and also shows advanced right hip osteoarthrosis is noted and unchanged. Patient was discharged home on pain medications advised follow-up with his primary care physician in 5 to 7 days for reevaluation or return to the ED immediately if symptoms get worse. - Differential Diagnosis Hip fracture; Hip contusion; Hip osteoathritis; Muscle strain; Hip sprain Critical care attestation.: If time is entered above; I have spent that time in minutes in the direct care of this critically ill patient, excluding procedure time. ED Disposition Clinical Impression: Acute pain of left hip Muscle strain of left lower extremity Qualifiers: Encounter type: initial encounter Qualified Code(s): S86.912A - Strain of unspecified muscle(s) and tendon(s) at lower leg level, left leg, initial encounter Osteoarthritis of left hip Qualifiers: Osteoarthritis type: primary Qualified Code(s): M16.12 - Unilateral primary osteoarthritis, left hip Disposition: TO HOME OR SELFCARE Is pt being admited?: No Does the pt Need Aspirin: No Condition: Stable Instructions: Muscle Strain (ED), Hip Sprain (ED), Arthralgia (ED) Additional Instructions: Take medication with food, drink plenty of fluids and follow-up with your primary care physician in 5 to 7 days for reevaluation. Return to the ED immediately if symptoms get worse. Prescriptions: Naproxen 500 mg PO Q12H PRN #30 tablet PRN Reason: Pain , Severe (7-10) Referrals: [facility] [Provider Group] - 3-5 Days Time of Disposition: 20:33 Print Language: BURKINAN
--- NOTE | 2019-08-23 20:26 | XRay Report ---
LEFT HIP 2 VIEW(S) INDICATION / CLINICAL INFORMATION: pain - fall COMPARISON: Radiograph dated 07/23/28 05/17/19 FINDINGS: BONES / JOINT(S): No acute fracture or subluxation. Mild left hip osteoarthrosis is unchanged. Advanc ed right hip osteoarthrosis is noted and unchanged. SOFT TISSUES: No significant abnormality. ADDITIONAL FINDINGS: None. Signer Name: Sandra Anthony MD Signed: 08/23/2019 8:21 PM Workstation Name: [id number]
== END 2019-08-23 21:10 | disposition home or self-care (01) ==
LOC: ED 17:52
DX: S86.912A Strain of unspecified muscle(s) and tendon(s) at lower leg level, left leg, initial encounter (principal); M16.12 Unilateral primary osteoarthritis, left hip; I10 Essential (primary) hypertension; F17.200 Nicotine dependence, unspecified, uncomplicated; Z86.73 Personal history of transient ischemic attack (TIA), and cerebral infarction without residual deficits; Z79.899 Other long term (current) drug therapy; Z98.890 Other specified postprocedural states; W01.0XXA Fall on same level from slipping, tripping and stumbling without subsequent striking against object, initial encounter; Y93.89 Activity, other specified; Y92.89 Other specified places as the place of occurrence of the external cause; Y99.8 Other external cause status
CPT/HCPCS: 73502; 99283; J7512

== ENCOUNTER 2019-08-24 13:33 | Emergency (ER) | payer MEDICAID ==
--- NOTE | 2019-08-24 14:10 | Emergency Department Report ---
Chief Complaint: Extremity Injury, Lower Stated Complaint: HIP PAIN - HPI History of Present Illness: 59-year-old -[place] male with a history ofChronic pain and alcoholism presents to the emergency room for the same complaint of right hip pain. Patient had an x-ray yesterday and it showed no acute abnormalities. Patient was prescribed naproxen and he has not filled his medication. Patient ambulatory into the emergency room without any difficulties. - Exam Vital Signs: Vital Signs 08/24/19 13:52 Temperature 97.9 F Pulse Rate 98 H Respiratory 18 Rate Blood Pressure 129/85 O2 Sat by Pulse 98 Oximetry Physical Exam: Gen: alert oriented NAD Vital signs are stable Patient ambulated without difficulties. MSE screening note: Focused history and physical exam performed. Due to findings the following was ordered: 59-year-old -[place] male with a history ofChronic pain and alcoholism presents to the emergency room for the same complaint of right hip pain. Patient had an x-ray yesterday and it showed no acute abnormalities. Patient was prescribed naproxen and he has not filled his medication. Patient ambulatory into the emergency room without any difficulties. Patient of EMS eat out who filled his naproxen and to follow-up with his primary care provider. I discussed the patient we would not do any further x-rays as he just had x-ray done yesterday. ED Disposition for MSE Clinical Impression: Osteoarthritis of left hip, Chronic left hip pain Disposition: MED SCREENING EXAM-LEFT Is pt being admited?: No Does the pt Need Aspirin: No Condition: Stable
[2019-08-26 12:41] VITALS: BP 129/85
== END 2019-08-24 14:41 | disposition left against medical advice (07) ==
LOC: ED 13:33
DX: M16.12 Unilateral primary osteoarthritis, left hip (principal); M25.551 Pain in right hip; G89.29 Other chronic pain
CPT/HCPCS: 99282

== ENCOUNTER 2019-09-13 09:02 | Emergency (ER) | payer MEDICAID ==
--- NOTE | 2019-09-13 09:34 | Emergency Department Report ---
ED General Adult HPI - General Chief complaint: Pain General Stated complaint: GROIN PAIN Time Seen by Provider: 09/13/19 09:11 Source: patient, EMS Mode of arrival: Stretcher Limitations: No Limitations - History of Present Illness Initial comments: This is a 59-year-old man with frequent emergency department visits. He complains of right groin pain. He is very nonspecific as to the exact location of the pain. He wears a diaper since his prior stroke. He is now fully continent. He states he is had no change in his bowel movement and no difficul ty urinating. The pain is really poorly localized but not actually in the inguinal ligament. It does not appear to be involving the testicles at all. I repeatedly asked him to demonstrate where the pain is and it seems to be in the proximal area of his right scrotum. There is been no swelling. Patient denies fever or chills. He is not been vomiting. -: Gradual, hour(s) (Since last night) Severity scale (0 -10): 0 Associated Symptoms: denies other symptoms - Related Data Previous Rx's Medication Instructions Recorded Last Taken Type chlordiazePOXIDE [Librium] 25 mg PO Q6H PRN #15 capsule 01/10/19 Unknown Rx Ibuprofen [Motrin 800 MG tab] 800 mg PO Q8HR PRN #20 tablet 01/25/19 Unknown Rx Folic Acid [Folvite] 1 mg PO QDAY #30 tablet 02/10/19 Unknown Rx Multivitamin Tab [Multiple Vitamin 1 each PO QDAY #30 tablet 02/10/19 Unknown Rx TAB (Theragran)] Aspirin 325 mg PO QDAY #30 tablet 02/13/19 Unknown Rx Multivitamin with Folic Acid [Cvs 400 mcg PO QDAY #30 tablet 02/13/19 Unknown Rx One Daily Essential Tablet] Thiamine [Vitamin B-1] 100 mg PO QDAY #30 tablet 02/13/19 Unknown Rx chlordiazePOXIDE [Librium] 50 mg PO Q1HR PRN #15 capsule 02/13/19 Unknown Rx Cyclobenzaprine [Flexeril] 10 mg PO TID PRN #14 tablet 05/17/19 Unknown Rx Ibuprofen [Motrin 800 MG tab] 800 mg PO Q8HR PRN #20 tablet 05/17/19 Unknown Rx Ondansetron [Zofran Odt] 4 mg PO Q8HR #20 tab.rapdis 03/18/20 Unknown Rx Ondansetron [Zofran Odt] 4 mg PO Q8HR #10 tab.rapdis 07/10/19 Unknown Rx Pantoprazole [Protonix] 40 mg PO QDAY #30 tablet 07/10/19 Unknown Rx traMADoL [Ultram 50 MG tab] 50 mg PO Q6HR PRN #12 tablet 07/24/19 Unknown Rx Azithromycin [Zithromax TAB] 250 mg PO QDAY 5 Days #6 tablet 08/13/19 Unknown Rx guaiFENesin ER [Mucinex ER] 600 mg PO Q12H #14 tablet.er 08/13/19 Unknown Rx predniSONE [Deltasone] 40 mg PO QDAY 5 Days #10 tablet 08/13/19 Unknown Rx Naproxen 500 mg PO Q12H PRN #30 tablet 08/23/19 Unknown Rx Allergies Allergy/AdvReac Type Severity Reaction Status Date / Time No Known Allergies Allergy Verified 01/24/19 22:37 ED Review of Systems ROS: Stated complaint: GROIN PAIN Other details as noted in HPI Constitutional: denies: chills, fever Eyes: denies: eye pain, eye discharge, vision change ENT: denies: ear pain, throat pain Respiratory: denies: cough, shortness of breath, wheezing Cardiovascular: denies: chest pain, palpitations Endocrine: no symptoms reported Gastrointestinal: denies: abdominal pain, nausea, diarrhea Genitourinary: denies: urgency, dysuria Musculoskeletal: as per HPI. denies: back pain, joint swelling, arthralgia Skin: denies: rash, lesions Neurological: denies: headache, weakness, paresthesias Psychiatric: denies: anxiety, depression Hematological/Lymphatic: denies: easy bleeding, easy bruising ED Past Medical Hx - Past Medical History Hx Hypertension: Yes Hx CVA: Yes Hx Arthritis: Yes Additional medical history: Dysphagia - Surgical History Additional Surgical History: Feeding tube-removed - Social History Smoking Status: Unknown if ever smoked Substance Use Type: Alcohol - Medications Home Medications: Home Medications Medication Instructions Recorded Confirmed Last Taken Type chlordiazePOXIDE [Librium] 25 mg PO Q6H PRN #15 capsule 01/10/19 Unknown Rx Ibuprofen [Motrin 800 MG tab] 800 mg PO Q8HR PRN #20 tablet 01/25/19 Unknown Rx Folic Acid [Folvite] 1 mg PO QDAY #30 tablet 02/10/19 Unknown Rx Multivitamin Tab [Multiple Vitamin 1 each PO QDAY #30 tablet 02/10/19 Unknown Rx TAB (Theragran)] Aspirin 325 mg PO QDAY #30 tablet 02/13/19 Unknown Rx Multivitamin with Folic Acid [Cvs 400 mcg PO QDAY #30 tablet 02/13/19 Unknown Rx One Daily Essential Tablet] Thiamine [Vitamin B-1] 100 mg PO QDAY #30 tablet 02/13/19 Unknown Rx chlordiazePOXIDE [Librium] 50 mg PO Q1HR PRN #15 capsule 02/13/19 Unknown Rx Cyclobenzaprine [Flexeril] 10 mg PO TID PRN #14 tablet 05/17/19 Unknown Rx Ibuprofen [Motrin 800 MG tab] 800 mg PO Q8HR PRN #20 tablet 05/17/19 Unknown Rx Ondansetron [Zofran Odt] 4 mg PO Q8HR #20 tab.rapdis 07/02/19 Unknown Rx Ondansetron [Zofran Odt] 4 mg PO Q8HR #10 tab.rapdis 07/10/19 Unknown Rx Pantoprazole [Protonix] 40 mg PO QDAY #30 tablet 07/10/19 Unknown Rx traMADoL [Ultram 50 MG tab] 50 mg PO Q6HR PRN #12 tablet 07/24/19 Unknown Rx Azithromycin [Zithromax TAB] 250 mg PO QDAY 5 Days #6 tablet 08/13/19 Unknown Rx guaiFENesin ER [Mucinex ER] 600 mg PO Q12H #14 tablet.er 08/13/19 Unknown Rx predniSONE [Deltasone] 40 mg PO QDAY 5 Days #10 tablet 08/13/19 Unknown Rx Naproxen 500 mg PO Q12H PRN #30 tablet 08/23/19 Unknown Rx ED Physical Exam - General Limitations: No Limitations General appearance: alert, in no apparent distress - Head Head exam: Present: atraumatic, normocephalic - Eye Eye exam: Present: normal appearance. Absent: scleral icterus - ENT ENT exam: Present: mucous membranes moist - Neck Neck exam: Present: normal inspection. Absent: tenderness - Respiratory Respiratory exam: Present: normal lung sounds bilaterally. Absent: respiratory distress - Cardiovascular Cardiovascular Exam: Present: regular rate, normal rhythm. Absent: systolic murmur, diastolic murmur, rubs, gallop - GI/Abdominal GI/Abdominal exam: Present: soft, normal bowel sounds. Absent: distended, tenderness, guarding, rebound, rigid, organomegaly, mass, bruit, pulsatile mass, hernia - Rectal Rectal exam: Present: deferred - exam: Present: normal inspection, circumcision. Absent: testicular tenderness, urethral discharge, scrotal swelling, vertical testicular lie - Extremities Exam Extremities exam: Present: normal inspection, full ROM, normal capillary refill. Absent: tenderness, pedal edema, joint swelling, calf tenderness - Back Exam Back exam: Present: normal inspection - Neurological Exam Neurological exam: Present: alert, oriented X3, motor sensory deficit (Old hemiparesis) - Psychiatric Psychiatric exam: Present: normal mood, flat affect - Skin Skin exam: Present: warm, dry, intact, normal color. Absent: rash ED Course Vital Signs 09/13/19 09:18 Temperature 97.4 F L Pulse Rate 68 Respiratory 18 Rate Blood Pressure 131/86 [Left] O2 Sat by Pulse 98 Oximetry - Reevaluation(s) Reevaluation #1: Anatomically the patient is normal. I do not see an indication for further diagnostic work-up. We will check an Accu-Chek. Patient is referred to primary care. 09/13/19 09:33 Critical care attestation.: If time is entered above; I have spent that time in minutes in the direct care of this critically ill patient, excluding procedure time. ED Disposition Clinical Impression: Right groin pain Disposition: DC-01 TO HOME OR SELFCARE Is pt being admited?: No Does the pt Need Aspirin: No Condition: Stable Instructions: Groin Pain (ED) Additional Instructions: Tylenol as needed for pain. Follow-up with primary care or [facility] clinic. Time of Disposition: 09:34
[2019-09-13 09:35] VITALS: BP 131/86
== END 2019-09-13 09:55 | disposition home or self-care (01) ==
LOC: ED 09:02
DX: R10.31 Right lower quadrant pain (principal); I10 Essential (primary) hypertension; M13.88 Other specified arthritis, other site; Z86.73 Personal history of transient ischemic attack (TIA), and cerebral infarction without residual deficits; Z79.899 Other long term (current) drug therapy
CPT/HCPCS: 82962

== ENCOUNTER 2020-02-25 16:49 | Emergency (ER) | payer MEDICAID ==
--- NOTE | 2020-02-25 18:57 | Emergency Department Report ---
Chief Complaint: Extremity Injury, Upper Stated Complaint: RIGHT HAND PAIN Time Seen by Provider: 02/25/20 18:33 - HPI History of Present Illness: The patient was evaluated in the emergency department for symptoms described in the history of present illness. He/she was evaluated in the context of the global COVID-19 pandemic, which necessitated consideration that the patient might be at risk for infection with the virus that causes COVID-19. Institutional protocols and algorithms that pertain to the evaluation of patients at risk for COVID-19 are in a state of rapid change based on information released by regulatory bodies including the CDC and federal and stat e organizations. These policies and algorithms were followed during the patient's care in the emergency department. Please note that these policies, procedures and recommendations changed on a rapid basis. 60-year-old -[place] male is known to me presents to the emergency room complaining of pain and swelling to his left index finger x1 week. Patient denies any injury. Patient reports he has not taken anything for his pain. Does have a history of arthritis CVA and hypertension and dysphagia. - Exam Physical Exam: Alert and oriented x3 no acute distress nontoxic in appearance Respiratory no accessory muscles use Left hand full range of motion left index enlargement of the PIP joint with no swelling mild constrictor from arthritis. No erythematous. Patient has a shuffling gait. MSE screening note: Focused history and physical exam performed. Due to findings the following was ordered: 60-year-old -[place] male is known to me presents to the emergency room complaining of pain and swelling to his left index finger x1 week. Patient denies any injury. Patient reports he has not taken anything for his pain. Does have a history of arthritis CVA and hypertension and dysphagia. Discussed with patient this is his arthritis that there is no swelling he has nodule enlargement to his joints but fairly good range of motion. Discussed with patient he can take [id number] ibuprofen or Tylenol for pain management. ED Disposition for MSE Clinical Impression: Arthritis of finger of left hand Disposition: - TO HOME OR SELFCARE Is pt being admited?: No Does the pt Need Aspirin: No Condition: Stable Instructions: Arthritis, [id number] Additional Instructions: Recommend Tylenol or ibuprofen for pain management. Follow-up with your primary care provider. Referrals: [facility] [Provider Group] - 3-5 Days
[2020-02-25 19:04] VITALS: BP 134/89
== END 2020-02-25 19:05 | disposition home or self-care (01) ==
LOC: ED 16:49
DX: M13.842 Other specified arthritis, left hand (principal); I10 Essential (primary) hypertension; Z86.73 Personal history of transient ischemic attack (TIA), and cerebral infarction without residual deficits; Z98.890 Other specified postprocedural states
CPT/HCPCS: 99282